=== PATIENT | male | born 1955 | race Two or more races ===

== ENCOUNTER 2020-07-02 16:09 | Inpatient (IN) | payer MEDICARE, OTHER ==
[~2020-07-02] VITALS: Ht 188 cm; Wt 83.5 kg
--- NOTE | 2020-07-02 16:09 | NUR ---
PT GABO 87 [facility] C/O FEVER OF 101.7 "HE IS HALF THRU HIS DIALYSIS" PT IS AAOX1, ON VENT VIA TRACH, HOOKED TO WAGON WINDER, KEPT RESTED AND COMFORTABLE. WILL CONTINUE TO MONITOR.
--- NOTE | 2020-07-02 16:34 | NUR ---
SEEN AND EXAMINED BY .
--- NOTE | 2020-07-02 16:40 | NUR ---
pt placed into vent support via trach size #8 shiley with cuff inflated. vent parameters below set per RT transporter: AC 12 VT 550 ML FIO2 40% PEEP +5 breath sounds clear bilateral. vent plugged into red outlet with alarms on and functioning. maliha @ bedside. Addendum: 07/02/20 at 1644 by SHANTELL KAUFFMAN RT Amended: Links added.
--- NOTE | 2020-07-02 16:45 | NUR ---
IV LINE ESTABLISHED BLOOD DRAWN AND SENT TO LAB.
--- NOTE | 2020-07-02 16:57 | NUR ---
REGISTERED NURSE SUPERVISOR AT BEDSIDE FOR XRAY.
[2020-07-02 17:03] LABS: BASOPHILS % (AUTO) 0.2 % (0.0-2.0); EOSINOPHILS % (AUTO) 0.5 % (0.0-6.0); HEMATOCRIT 35 % (39-51); HEMOGLOBIN 10.7 g/dL (13.5-17.5); LYMPHOCYTES # (AUTO) 0.3 /CMM (0.8-4.8); LYMPHOCYTES % (AUTO) 1.6 % (20.0-44.0); MEAN CORPUSCULAR HGB CONC 31 g/dl (31.0-36.0); MEAN CORPUSCULAR VOLUME 90 fL (80-96); MONOCYTES # (AUTO) 1.5 /CMM (0.1-1.30); NEUTROPHILS # (AUTO) 15.1 /CMM (1.8-8.9); NEUTROPHILS % (AUTO) 88.7 % (43.0-81.0); PLATELET COUNT (AUTO) 81 /CMM (150-450)
--- NOTE | 2020-07-02 17:05 | NUR ---
MOVE SHEET SUBMITTED AND CALLED FOR TELE BED.
--- NOTE | 2020-07-02 17:26 | NUR ---
LAB CALLED TRIPONIN [phone]
[2020-07-02 17:28] LABS: CALCIUM, SERUM 8.7 mg/dL (8.5-10.1); CREATININE 6.9 mg/dL (0.6-1.3); POTASSIUM 3.1 mmol/L (3.5-5.1)
--- NOTE | 2020-07-02 17:34 | NUR ---
CALLED CARDIO DR. AVILA SPEAKING WITH DR. MATHIAS.
[2020-07-02 17:39] LABS: ALBUMIN 2.3 g/dL (3.4-5.0); BILIRUBIN,DIRECT 0.7 mg/dL (0.0-0.2); TOTAL PROTEIN, SERUM 8.8 g/dL (6.4-8.2)
[2020-07-02] MEDS ORDERED: IV NS 0.9% 1,000 ML BAG IV ONE ×2 (18:00→20:00)
[2020-07-02] MEDS ORDERED: VANCOMYCIN 1 GM in IV D5W 250 ML IV ONE (18:00)
[2020-07-02] MEDS ORDERED: PIPERACILLIN /TAZOBACTAM 3.375 G in IV D5W 50 ML IV ONE (18:00)
--- NOTE | 2020-07-02 18:09 | NUR ---
[facility] CALLED DEPARTMENT HEAD COLLEGE OR UNIVERSITY PAGED.
[2020-07-02 18:42] LABS: BAND % (MANUAL) 4 % (0.0-5.0); LYMPHOCYTES % (MANUAL) 8 % (16-48); MONOCYTES % (MANUAL) 4 % (0-11.0); NEUTROPHILS % (MANUAL) 84 (42-76)
--- NOTE | 2020-07-02 18:46 | NUR ---
PT IS WHEELED TO CT SCAN VIA [facility].
[2020-07-02] MEDS ORDERED: ASPIRIN 325 MG TABLET ONE (19:00)
[2020-07-02] MEDS ORDERED: ASPIRIN 325 MG TABLET PEG ONE (19:00)
--- NOTE | 2020-07-02 19:16 | NUR ---
ER TALKING TO DR. BAXTER REGARDING PT ADMISSION.
[2020-07-02] MEDS ORDERED: ENOXAPARIN SODIUM 100 MG/ML DISP.SYRIN SQ SCH (19:30)
[2020-07-02] MEDS ORDERED: ENOXAPARIN SODIUM 100 MG/ML DISP.SYRIN SQ ONE (20:08)
[2020-07-02] MEDS ORDERED: NOREPINEPHRINE 8 MG in IV NS 0.9% 250 ML IV ONE (20:30)
[2020-07-02] MEDS ORDERED: ACETAMINOPHEN 650 MG/20.3 ML UDC NG ONE (20:30)
[2020-07-02] MEDS ORDERED: ACETAMINOPHEN 650 MG/20.3 ML UDC ONE (20:40)
--- NOTE | 2020-07-02 20:40 | NUR ---
LAB CALLED REGARDING NEGATIVE COVID RESULT.
--- NOTE | 2020-07-02 20:41 | NUR ---
SIMA Marquez at [facility] for mid line insertion.
[2020-07-02] MEDS ORDERED: ACETAMINOPHEN 650 MG/SUPP.RECT RC ONE (20:46)
[2020-07-02] MEDS ORDERED: NOREPINEPHRINE 4 MG/4 ML AMPUL IV ONE (21:16)
--- NOTE | 2020-07-02 21:58 | NUR ---
PATIENT CLEANED, PROVIDED WITH BED BATH. CHANGED INTO NEW GOWN, AND PROVIDED WITH NEW SHEETS.
[2020-07-02] MEDS ORDERED: ZOLPIDEM TARTRATE 5 MG TABLET PO PRN (22:00)
[2020-07-02] MEDS ORDERED: ONDANSETRON HCL/PF 4 MG/2 ML VIAL IVP PRN (22:00)
[2020-07-02] MEDS ORDERED: HYDROCODONE/APAP 5/325MG TABLET PO PRN (22:00)
[2020-07-02] MEDS ORDERED: MAGNESIUM HYDROXIDE 30 ML UDC PO PRN (22:00)
[2020-07-02] MEDS ORDERED: MAG HYDROX/AL HYDROX/SIMETH 30 ML UDC PO PRN (22:00)
--- NOTE | 2020-07-02 23:28 | NUR ---
REPORT GIVEN TO JUAN PABLO QUIGLEY FOR DEMETRICE.
[2020-07-03] VITALS (90 sets, daily range): BP systolic 84–143; BP diastolic 35–99
[2020-07-03] MEDS ORDERED: ZOSYN IVPB 2.25 G in IV D5W 50ml IV SCH ×2
[2020-07-03] MEDS: IV NS 0.9% 1,000 ML IV PRN ×3 (00:10→18:10)
[2020-07-03] MEDS ORDERED: PIPERACILLIN /TAZOBACTAM 2.25 G VIAL IV ONE (01:22)
--- NOTE | 2020-07-03 03:24 | NUR ---
MANAGER TECHNICAL SUPPORT.ADMISSION,. PT BEING ADMITTED FROM ER VIA GURNEY, SEPSIS, AND N STEMI. PT OPEN EYES. DOES NOT FOLLOW COMMANDS. ERP PROJECT MANAGER SHOWING S TACH. IV RT UPPER ARM PICC LINE. IVF NS 125 ML/H, LEVOPHED STARTED FROM ER. 0.1MCG/KG/MIN, MULTIPLE WOUND NOTED. WOUND CONSULTATION ORDERED. ELENA HAND MITTENS INITIATED. PT PULLING TUBES, HOB ELEVATED. WILL CONTINUE TO MONITOR VITALS.
[2020-07-03] MEDS ORDERED: NOREPINEPHRINE 8 MG in IV NS 0.9% 242 ML IV PRN (03:30)
[2020-07-03] MEDS ORDERED: NOREPINEPHRINE 8MG/250ML RTU 250 ML IV ONE (04:42)
[2020-07-03 05:22] LABS: BASOPHILS % (AUTO) 0.1 % (0.0-2.0); EOSINOPHILS % (AUTO) 0.5 % (0.0-6.0); HEMATOCRIT 35 % (39-51); HEMOGLOBIN 10.8 g/dL (13.5-17.5); LYMPHOCYTES # (AUTO) 0.3 /CMM (0.8-4.8); LYMPHOCYTES % (AUTO) 1.5 % (20.0-44.0); MEAN CORPUSCULAR HGB CONC 31 g/dl (31.0-36.0); MEAN CORPUSCULAR VOLUME 91 fL (80-96); MONOCYTES # (AUTO) 2.5 /CMM (0.1-1.30); MONOCYTES % (AUTO) 11.4 % (2.0-12.0); NEUTROPHILS # (AUTO) 18.6 /CMM (1.8-8.9); NEUTROPHILS % (AUTO) 86.5 % (43.0-81.0); PLATELET COUNT (AUTO) 85 /CMM (150-450); RED BLOOD CELL COUNT(AUTO) 3.83 MIL/uL (4.5-6.0); WHITE BLOOD COUNT (AUTO) 21.6 K/uL (4.3-11.0)
[2020-07-03 05:43] LABS: CALCIUM, SERUM 8.9 mg/dL (8.5-10.1); MAGNESIUM 2.6 mg/dL (1.8-2.4); PHOSPHORUS 3.7 mg/dL (2.5-4.9); POTASSIUM 3.2 mmol/L (3.5-5.1)
[2020-07-03 05:45] LABS: THYROID STIMULATING HORMONE 1.038 uIU/mL (0.358-3.74)
[2020-07-03 05:56] LABS: CREATININE 7.5 mg/dL (0.6-1.3)
--- NOTE | 2020-07-03 07:00 | NUR ---
RN NOTES RECEIVED PT ON BED, TRACH / VENT DEPENDENT, TOLERATING VENT SETTING WELL, NO DISTESS NOTED, FOLLOWS SIMPLE COMMAND, ON TELE ST ,HR IN 110'S , ON LEVO FOR BP SUPPORT, R UPPER ARM PICC LINE SITE CLEAN,DRY AND INTACT, SR UP x3, CALL LIGHT WITHIN EASY REACH, WILL CONTINUE TO MONITOR .
[2020-07-03] MEDS ORDERED: POTASSIUM CHLORIDE 20 MEQ POWDER PACKET NG SCH (08:00)
[2020-07-03] MEDS: HYDROCORTISONE SOD SUCCINATE 100 MG/2 ML VIAL IV SCH ×3 (08:42→20:52)
[2020-07-03] MEDS ORDERED: PANTOPRAZOLE 40 MG VIAL IV SCH (09:00)
[2020-07-03] MEDS ORDERED: QUET25TA GT (09:46)
[2020-07-03] MEDS ORDERED: ATOR10TA GT (09:46)
[2020-07-03] MEDS ORDERED: ONDA4TAB5 GT (09:46)
[2020-07-03] MEDS ORDERED: GLUC1KIT IM (09:46)
[2020-07-03] MEDS ORDERED: MIDO5TAB4 GT (09:46)
[2020-07-03] MEDS ORDERED: ALBU8.5H8 IH (09:46)
[2020-07-03] MEDS ORDERED: INSU100V28 SQ (09:46)
[2020-07-03] MEDS ORDERED: SCOP1PAT11 TD (09:46)
[2020-07-03] MEDS ORDERED: HYDR-4303 GT (09:46)
[2020-07-03] MEDS ORDERED: FERR300L GT (09:46)
[2020-07-03] MEDS ORDERED: PANT40SU2 GT (09:46)
[2020-07-03] MEDS ORDERED: EPOE1000 SQ (09:46)
[2020-07-03] MEDS ORDERED: LORA-259 GT (09:46)
[2020-07-03] MEDS ORDERED: DIPH1TAB GT (09:46)
[2020-07-03] MEDS ORDERED: ESCI10TA GT (09:46)
[2020-07-03] MEDS ORDERED: DILT30TA14 GT (09:46)
[2020-07-03] MEDS ORDERED: FOLI0.8T2 GT (09:46)
[2020-07-03] MEDS ORDERED: AMIN30LI2 GT (09:46)
[2020-07-03] MEDS ORDERED: ACET-868 GT (09:46)
[2020-07-03] MEDS ORDERED: NUT.237L67 GT (09:46)
[2020-07-03] MEDS ORDERED: GUAI100S11 GT (09:46)
[2020-07-03] MEDS: Z GUARD REMEDY 2 OZ OINT TP PRN (09:53)
[2020-07-03] MEDS: FLUDROCORTISONE 0.1 MG TABLET GT SCH ×3 (11:36→23:39)
[2020-07-03] MEDS: ZOSYN IVPB 2.25 G in IV D5W 50ml IV SCH ×3 (11:36→23:40)
[2020-07-03] MEDS ORDERED: DEXTROSE 50%-WATER 50 ML DISP.SYRIN IV PRN (14:00)
[2020-07-03] MEDS ORDERED: VANCOMYCIN 500 MG in IV D5W 100 ML IV ONE (14:00)
--- NOTE | 2020-07-03 14:00 | NUR ---
RN NOTES CONCRETE MIXING PLANT SUPERINTENDENT NOITFED REGARDING LOOSE STOOL x2 , NEW ORDER RECEIVED.
[2020-07-03] MEDS: NEPRO 1,000 ML BOTTLE GT PRN (15:12)
[2020-07-03] MEDS: INSULIN REGULAR, HUMAN 100 UNIT/ML 3 ML VIAL SQ PRN ×2 (17:28→23:39)
[2020-07-03] MEDS: BLOOD SUGAR DIAGNOSTIC 1 EACH STRIP IN SCH ×2 (17:29→23:36)
--- NOTE | 2020-07-03 18:54 | NUR ---
RN NOTES NO SIGNIFICANT CHANGES NOTED ON THIS SHIFT , WILL ENDORSE TO LOOPING MACHINE OPERATOR NURSE FOR CONTINUITY OF CARE.
--- NOTE | 2020-07-03 19:33 | NUR ---
RN NOTES PATIENT ON BED, AWAKE AND RESPONSIVE. FOLLOWS SIMPLE COMMANDS. [facility], TOLERATING SETTINGS WELL. NO SOB OR ANY DISTRESS. DENIES ANY PAIN. TELE MONITOR ON, HR 97. ON IVF FLUID @ 125ML/HR RUNNING. SR UP X3. BED LOCKED AND IN LOWEST POSITION. CALL LIGHT WITHIN REACH. WILL CONTINUE TO MONITOR.
[2020-07-03] MEDS ORDERED: ENOXAPARIN SODIUM 120 MG/0.8 ML DISP.SYRIN SQ SCH ×2 (20:00)
[2020-07-03] MEDS: FERROUS SULFATE UDC 300 MG/5 ML UDC GT SCH (20:52)
[2020-07-03] MEDS: DILTIAZEM HCL 30 MG TABLET GT SCH (20:52)
[2020-07-03] MEDS: MIDODRINE HCL (5MG) 5 MG TABLET GT SCH (20:52)
[2020-07-03] MEDS: ATORVASTATIN 10 MG TABLET GT SCH (21:05)
[2020-07-04] VITALS (76 sets, daily range): BP systolic 79–145; BP diastolic 44–79
[2020-07-04] MEDS: IV NS 0.9% 1,000 ML IV PRN (02:16)
[2020-07-04] MEDS: HYDROCORTISONE SOD SUCCINATE 100 MG/2 ML VIAL IV SCH ×2 (05:29→17:13)
[2020-07-04] MEDS: ZOSYN IVPB 2.25 G in IV D5W 50ml IV SCH (05:30)
[2020-07-04] MEDS: MIDODRINE HCL (5MG) 5 MG TABLET GT SCH ×3 (05:30→22:02)
[2020-07-04] MEDS: FLUDROCORTISONE 0.1 MG TABLET GT SCH (05:31)
[2020-07-04] MEDS ORDERED: VANCOMYCIN POST DIALYSIS 500MG IV PRN ×2 (06:00)
[2020-07-04] MEDS: BLOOD SUGAR DIAGNOSTIC 1 EACH STRIP IN SCH ×3 (06:31→18:37)
[2020-07-04] MEDS: INSULIN REGULAR, HUMAN 100 UNIT/ML 3 ML VIAL SQ PRN ×2 (06:32→17:58)
--- NOTE | 2020-07-04 07:37 | NUR ---
RN NOTES PATIENT ON BED, AWAKE AND RESPONSIVE. FOLLOWS SIMPLE COMMANDS. [facility], TOLERATING SETTINGS WELL. NO SOB OR ANY DISTRESS. DENIES ANY PAIN. TELE MONITOR ON, HR 90'S. ON IVF FLUID @ 125ML/HR RUNNING. SR UP X3. BED LOCKED AND IN LOWEST POSITION. CALL LIGHT WITHIN REACH. ENDORSED TO ONCOMING SHIFT.
[2020-07-04 08:10] LABS: BASOPHILS % (AUTO) 0.3 % (0.0-2.0); HEMATOCRIT 32 % (39-51); HEMOGLOBIN 10.1 g/dL (13.5-17.5); LYMPHOCYTES # (AUTO) 0.3 /CMM (0.8-4.8); LYMPHOCYTES % (AUTO) 2.2 % (20.0-44.0); MEAN CORPUSCULAR HGB CONC 31 g/dl (31.0-36.0); MEAN CORPUSCULAR VOLUME 90 fL (80-96); MONOCYTES # (AUTO) 1.3 /CMM (0.1-1.30); MONOCYTES % (AUTO) 10.2 % (2.0-12.0); NEUTROPHILS # (AUTO) 11.3 /CMM (1.8-8.9); NEUTROPHILS % (AUTO) 86.3 % (43.0-81.0); PLATELET COUNT (AUTO) 67 /CMM (150-450); RED BLOOD CELL COUNT(AUTO) 3.58 MIL/uL (4.5-6.0); WHITE BLOOD COUNT (AUTO) 13.1 K/uL (4.3-11.0)
[2020-07-04 08:36] LABS: POTASSIUM 3.9 mmol/L (3.5-5.1)
[2020-07-04 08:51] LABS: CREATININE 8.3 mg/dL (0.6-1.3)
--- NOTE | 2020-07-04 08:51 | NUR ---
WOUND CARE CONSULT: REVIEWED CHART, NURSING DOCUMENTATION AND PHOTOS WHICH INDICATE LOWER EXTREMITY WOUNDS, SCARRING TO SACRUM WITH INCONTINENCE ASSOCIATED SKIN DAMAGE OVER SCARRING AND TO PERINEUM, PRESENT ON ADMISSION. RECOMMEND DPM CONSULT. DR OSBORNE NOTIFIED OF CONSULT REQUEST. RECOMMENDATIONS MADE FOR SKN PROTECTION. DISCUSSED WITH NURSING STAFF. PT IS ON ROACH ISOFLEX LOW AIRLOSS BED. MD IN AGREEMENT WITH PLAN OF CARE.
[2020-07-04] MEDS ORDERED: PANTOPRAZOLE 40 MG/PACK PACK GT SCH (09:00)
[2020-07-04] MEDS: DILTIAZEM HCL 30 MG TABLET GT SCH ×2 (09:00→22:03)
[2020-07-04] MEDS: FERROUS SULFATE UDC 300 MG/5 ML UDC GT SCH ×2 (09:20→22:02)
[2020-07-04] MEDS: VIT B CMPLX 3/FA/VIT C/BIOTIN 1 TAB TABLET PO SCH (09:20)
[2020-07-04] MEDS: ESCITALOPRAM OXALATE (10 MG) 10 MG TABLET GT SCH (09:20)
--- NOTE | 2020-07-04 09:21 | NUR ---
SAND OPERATOR NOTES HELD CARDIZEM, ANTICIPATING HD.
[2020-07-04] MEDS: CLOTRIMAZOLE 1% 15 GM TUBE TP SCH ×2 (09:23→17:13)
--- NOTE | 2020-07-04 11:30 | NUR ---
HIP HOP PERFORMERS NOTES RECEIVED A CALL FROM LAB, PATIENT POSITIVE FOR C-DIFF, DR. ZUÑIGA AND INFECTION CONTROL NURSE MADE AWARE.
[2020-07-04] MEDS ORDERED: ALBUMIN 25% 25 GM in PREMIX 1 EA IV PRN (12:00)
--- NOTE | 2020-07-04 12:02 | NUR ---
LAWYER NOTES PATIENT CURRENTLY RECEIVING HD
[2020-07-04] MEDS ORDERED: ZOSYN IVPB 2.25 G in IV D5W 50ml IV SCH (13:00)
[2020-07-04] MEDS ORDERED: DEXTROSE 50%-WATER 50 ML DISP.SYRIN IV PRN (13:00)
--- NOTE | 2020-07-04 13:58 | NUR ---
BRAZING MACHINE OPERATOR NOTES S/P HD, 2L OUTPUT GLENIS WELL.
[2020-07-04] MEDS ORDERED: EPOETIN ALFA-EPBX 10,000 UNIT/ML VIAL IV ONE (15:00)
[2020-07-04] MEDS ORDERED: VANCOMYCIN 1 GM in IV D5W 250 ML IV ONE (15:00)
[2020-07-04] MEDS: LACTOBACILLUS RHAMNOSUS GG 1 EACH CAP.SPRINK PO SCH (17:13)
[2020-07-04] MEDS: VANCOMYCIN HCL 125 MG/2.5 ML ORAL.SUSP PO SCH (18:46)
--- NOTE | 2020-07-04 19:00 | NUR ---
EMPLOYMENT COUNSELOR NOTES PATIENT DOWNGRADED TO TELE, TRANSFERRED TO ROOM 101 VIA ACLS PROTOCOL, REPORT GIVEN TO DANN STATON. PATIENT ALERT AND ORIENTED X1. ABLE TO MOUTH WORDS. TRACH INTACT AND PATENT, SHILEY #8 GLENIS MECHANICAL VENTILATION WELL. RIGHT UPPER ARM PICC LINE INTACT WITH LEFT HAND HAND PERIPHERAL INTACT AND PATENT. LEFT UPPER CHEST HD CATH ACCESS SITE INTACT WITH DRESSING IN PLACE. BILATERAL WRIST RESTRAINTS IN PLACE WITH SKIN CIRCULATION CHECK DONE. REMAIN ON CONTACT PRECAUTIONS FOR C-DIFF. IN NO APPARENT DISTRESS.
--- NOTE | 2020-07-04 19:16 | NUR ---
RN NOTES PATIENT RECEIVED FROM RN AT THIS TIME PATIENT ON MECHANICAL VENT SATURATING WELL. WILL ENDORSE PLAN OF CARE TO UPCOMING RN.
--- NOTE | 2020-07-04 19:35 | NUR ---
RN OPENING NOTES RECEIVED PT IN BED. TRACH TO VENT. NONVERBAL ABLE TO OPEN EYES. PT HAS SHILEY 8 AC 12 TV 550 FIO2 30% AND PEEP 5. TOLERATING WELL. O2 SAT 100% NO SOB OR RESP DISTRESS. ON TELE MONITORING PT PRESENTS WITH NSR, HR 80S. IV SITE FLUSHED ASEPTICALLY. PT HAS GTUBE AUSCULTATED FLUSHED. PN NEPRO @6SCC TOLERATING WELL 0 RESIDUAL. SOFT ELENA WRIST RESTRAINTS ON SKIN CHECKED CIRCULATION CHECKED. SAFETY MEASURES IN PLACE. HOB ELEVATED SIDE RAILS UP X2 BED LOCKED IN LOWEST POSITION, CALL LIGHT WITHIN REACH. PT DENIES PAIN. WILL CONT TO MONITOR.
[2020-07-04] MEDS: ATORVASTATIN 10 MG TABLET GT SCH (22:02)
[2020-07-05] VITALS: BP 116/69
[2020-07-05] MEDS: BLOOD SUGAR DIAGNOSTIC 1 EACH STRIP IN SCH ×4 (00:07→17:33)
[2020-07-05] MEDS: INSULIN REGULAR, HUMAN 100 UNIT/ML 3 ML VIAL SQ PRN ×4 (00:44→17:36)
--- NOTE | 2020-07-05 01:02 | NUR ---
ORAL VANCO ORDERED IS NOT AVAILABLE, CHECK PREVIOUS FLOOR WELL AND NOTIFIED CHARGE AND NURSP SLURRY WORKER, MED NOT IN STOCK.
[2020-07-05 04:00] VITALS: BP 105/69
[2020-07-05] MEDS: MIDODRINE HCL (5MG) 5 MG TABLET GT SCH ×3 (05:05→20:54)
[2020-07-05] MEDS: VANCOMYCIN HCL 125 MG/2.5 ML ORAL.SUSP PO SCH ×4 (05:06→17:33)
[2020-07-05] MEDS: Z GUARD REMEDY 2 OZ OINT TP PRN (06:33)
[2020-07-05 06:51] LABS: BASOPHILS % (AUTO) 0.2 % (0.0-2.0); HEMATOCRIT 34 % (39-51); HEMOGLOBIN 10.7 g/dL (13.5-17.5); LYMPHOCYTES # (AUTO) 0.3 /CMM (0.8-4.8); LYMPHOCYTES % (AUTO) 2.7 % (20.0-44.0); MEAN CORPUSCULAR HGB CONC 32 g/dl (31.0-36.0); MEAN CORPUSCULAR VOLUME 90 fL (80-96); MONOCYTES # (AUTO) 1.7 /CMM (0.1-1.30); MONOCYTES % (AUTO) 13.5 % (2.0-12.0); NEUTROPHILS # (AUTO) 10.5 /CMM (1.8-8.9); NEUTROPHILS % (AUTO) 83.6 % (43.0-81.0); PLATELET COUNT (AUTO) 60 /CMM (150-450); RED BLOOD CELL COUNT(AUTO) 3.79 MIL/uL (4.5-6.0); WHITE BLOOD COUNT (AUTO) 12.6 K/uL (4.3-11.0)
--- NOTE | 2020-07-05 07:01 | NUR ---
RN CLOSING NOTES NO SIGNIFICANT CHANGES. BED BATH AND WOUND TX DONE ORDERED. PT TOLERATED BOTH. PT STILL ON SAME VENT SETTINGS ORDERED TOLERATING WELL. SAT 100%. PT HAD 1 LARGE BM. GTUBE FEEDING STILL ON AT THIS TIME. PT STILL REMAINS WITH RESTRAINTS. SOFT ELENA WRIST. SAFETY MEASURES IN PLACE. HOB ELEVATED. SIDE RAILS UP X3. BED LOCKED IN LOWEST POSITION. BED ALARM ON. WILL ENDORSE TO AM NURSE FOR CONTINUATION OF CARE.
[2020-07-05 07:17] LABS: CALCIUM, SERUM 8.8 mg/dL (8.5-10.1); MAGNESIUM 2.5 mg/dL (1.8-2.4); PHOSPHORUS 3.8 mg/dL (2.5-4.9); POTASSIUM 3.4 mmol/L (3.5-5.1)
[2020-07-05 07:27] LABS: CREATININE 7.5 mg/dL (0.6-1.3)
--- NOTE | 2020-07-05 07:30 | NUR ---
TD OPENING NOTES RECEIVED PT IN BED. TRACH TO VENT. NONVERBAL ABLE TO OPEN EYES. PT HAS SHILEY 8 AC 12 TV 550 FIO2 30% AND PEEP 5. TOLERATING WELL. O2 SAT 100% NO SOB OR RESP DISTRESS. ON TELE MONITORING PT PRESENTS WITH NSR, HR 80S. IV SITE FLUSHED ASEPTICALLY. PT HAS GTUBE AUSCULTATED FLUSHED. ON NEPRO @6SCC TOLERATING WELL 0 RESIDUAL. SOFT ELENA WRIST RESTRAINTS ON SKIN CHECKED CIRCULATION CHECKED. SAFETY MEASURES IN PLACE. HOB ELEVATED SIDE RAILS UP X2 BED LOCKED IN LOWEST POSITION, CALL LIGHT WITHIN REACH. PT DENIES PAIN. WILL CONTINUE TO MONITOR AND PROVIDE CARE
--- NOTE | 2020-07-05 07:36 | NUR ---
WOUND CARE CONSULT: PT SEEN FOR SACRAL WOUND WHICH HAS MULTIPLE OPEN AREAS WELL INCONTINENCE ASSOCIATED SKIN DAMAGE TO BUTTOCKS AND PERIWOUND SCARRING, PRESENT ON ADMISSION. RECOMMEND SURGICAL CONSULT. DR WERNER NOTIFIED. RECOMMENDATIONS FOR SKIN PROTECTION DISCUSSED WITH NURSING STAFF. PT NOTED TO BE HAVING LOOSE STOOLS. IN AGREEMENT WITH PLAN OF CARE. [facility]OW [facility] BED. Addendum: 07/05/20 at 0738 by FRITZ BALL WNDNU Amended: Links added.
[2020-07-05 08:00] VITALS: BP 119/71
[2020-07-05] MEDS ORDERED: HYDROGEL DRESSING 90 GM TUBE TP PRN (08:00)
[2020-07-05] MEDS: FERROUS SULFATE UDC 300 MG/5 ML UDC GT SCH ×2 (09:06→20:54)
[2020-07-05] MEDS: DILTIAZEM HCL 30 MG TABLET GT SCH ×2 (09:06→21:00)
[2020-07-05] MEDS: FAMOTIDINE (20 MG) 20 MG TABLET GT SCH (09:07)
[2020-07-05] MEDS: ESCITALOPRAM OXALATE (10 MG) 10 MG TABLET GT SCH (09:07)
[2020-07-05] MEDS: LACTOBACILLUS RHAMNOSUS GG 1 EACH CAP.SPRINK PO SCH ×2 (09:07→17:33)
[2020-07-05] MEDS: HYDROCORTISONE SOD SUCCINATE 100 MG/2 ML VIAL IV SCH (09:07)
[2020-07-05] MEDS: VIT B CMPLX 3/FA/VIT C/BIOTIN 1 TAB TABLET PO SCH (09:07)
--- NOTE | 2020-07-05 11:11 | NUR ---
SPOKE TO PATIENT'S SISTER, KWADWO SAO TOMEAN. GAVE UPDATE ON PATIENT AND RECEIVED CONSENT FOR PERMACATH REMOVAL, ORDERED BY DR. DIAL.
--- NOTE | 2020-07-05 11:11 | NUR ---
SON - KARINA PHONE NUMBER [phone] PATIENT'S SISTER, JUAN PABLO MENJIVAR REQUESTED THAT THE PATIENT'S SON BE CONTACTED FIRST FOR ANY CONSENTS BUT SHE WILL PROVIDE CONSENT IF SON IS NOT REACHABLE.
[2020-07-05] MEDS: HYDROGEL DRESSING 90 GM TUBE TP SCH (11:38)
[2020-07-05] MEDS: CLOTRIMAZOLE 1% 15 GM TUBE TP SCH ×2 (11:39→17:33)
[2020-07-05 12:00] VITALS: BP 122/87
--- NOTE | 2020-07-05 14:24 | NUR ---
FLEXISEAL RECTAL TUBE INSERTED ORDERED.
[2020-07-05] MEDS ORDERED: VANCOMYCIN 1 GM in IV D5W 250 ML IV ONE (15:00)
--- NOTE | 2020-07-05 15:11 | NUR ---
TESSIE DIAL AT BEDSIDE. REMOVED PERMA CATH. NO S/S OF EXCESSIVE BLEEDING AT THIS TIME. WILL CONT TO MONITOR PATIENT.
--- NOTE | 2020-07-05 15:54 | NUR ---
SPOKE TO [facility] TO DETERMINE VACCINATION STATUS. NURSE INFORMED THAT PATIENT RECEIVED FLU & PNEUMONIA VACCINES ON 06/24/2020. INTERVENTION DOCUMENT COMPLETED TO REFLECT.
[2020-07-05 16:00] VITALS: BP 116/71
--- NOTE | 2020-07-05 18:39 | NUR ---
TELEMETRY CLOSING NOTES RECEIVED PT IN BED. TRACH TO VENT. NONVERBAL ABLE TO OPEN EYES. PT HAS SHILEY 8 AC 12 TV 550 FIO2 30% AND PEEP 5. TOLERATING WELL. O2 SAT 100% NO SOB OR RESP DISTRESS. ON TELE MONITORING PT PRESENTS WITH NSR, HR 80S. IV SITE FLUSHED ASEPTICALLY. PT HAS GTUBE AUSCULTATED FLUSHED. ON NEPRO @6SCC TOLERATING WELL 0 RESIDUAL, CURRENTLY STOPPED ORDERED. SOFT ELENA WRIST RESTRAINTS ON SKIN CHECKED CIRCULATION CHECKED. SAFETY MEASURES IN PLACE. HOB ELEVATED SIDE RAILS UP X2 BED LOCKED IN LOWEST POSITION, CALL LIGHT WITHIN REACH. PT DENIES PAIN. WILL ENDORSE TO TROUBLE LINEMAN NURSE FOR DEMETRICE.
--- NOTE | 2020-07-05 19:25 | NUR ---
RECEIVED PT ON BED AWAKE A/O X2 CAN MOUTH WORDS ON TRACHE/VENT SETTING PER MD FIO2 30% SPO2 98% TELE MONITOR READS SINUS RHYTHM 80'S HAVE GTUBE IN PLACE, PLACEMENT VERIFIED, RESIDUAL CHECKED 10ML WITH ONGOING NEPRO @ 65ML/HR TOLERATING WELL, HAVE MIKI TLC AND LEFT HAND # 20 PATENT AND FLUSHED, HAVE FLEXISEAL ON PLACE NO BOWEL MOVEMENT NOTED, HAVE BILATEARL WRIST RESTRAINTS CIRCULATION WAS CHECKED , BED ON LOWEST POSITION AND LOCKED SIDE RAILS UP X2 CALL LIGHT WITHIN REACH WILL CONT TO MONITOR
[2020-07-05 20:00] VITALS: BP 108/60
--- NOTE | 2020-07-05 21:00 | NUR ---
CARDIZEM NOT GIVEN BP OF PT IS 108/60 HR 82 AND MIDODRINE IS ALSO TO BE GIVEN AT SAME TIME
[2020-07-05] MEDS: ATORVASTATIN 10 MG TABLET GT SCH (22:26)
[2020-07-06] VITALS: BP 126/66
[2020-07-06] MEDS: VANCOMYCIN HCL 125 MG/2.5 ML ORAL.SUSP PO SCH ×4 (00:10→18:47)
[2020-07-06] MEDS: INSULIN REGULAR, HUMAN 100 UNIT/ML 3 ML VIAL SQ PRN ×4 (00:17→19:09)
[2020-07-06] MEDS: BLOOD SUGAR DIAGNOSTIC 1 EACH STRIP IN SCH ×5 (00:18→23:45)
--- NOTE | 2020-07-06 04:15 | NUR ---
TRANSFER PT TO ROOM 312-1 VIA ACLS PROTOCOL, D/T COVID TEST IS NEGATIVE, STILL ON TRACH/VENT SETTING PER MD SPO2 98% REPORT WAS GIVEN TO CHRISTEL QUIGLEY FOR DEMETRICE BELONGINGS ASLO ENDORSED AT BEDSIDE
--- NOTE | 2020-07-06 04:37 | NUR ---
ENDING NOTES: RECEIVEDD THE PT VIA BED FROM [facility] WILL OPEN EYES AND THERE IS EYE CONTACT HE DOES MOUTH WORDS. TRACH AREA CLEAN WITH DRESSING FLEXICELL NOTED PICLINE RIGHT UPPER ARM GT FEEDING PLACED ON MACHINE AND STARTED ASP PRECAUTIONS. TELE MONITOR PLACED
[2020-07-06 05:01] VITALS: BP 102/65
[2020-07-06] MEDS: MIDODRINE HCL (5MG) 5 MG TABLET GT SCH ×3 (05:09→22:15)
--- NOTE | 2020-07-06 07:20 | NUR ---
ms rn received a nonverbal patient, vent dependent, gtube intact w/ on going feeding,tolerated well, w/o residual,rectal tube intact w/ dark brown poutput,repositioned for comfort,all needs attended.
[2020-07-06 07:27] LABS: BASOPHILS % (AUTO) 0.2 % (0.0-2.0); HEMATOCRIT 35 % (39-51); LYMPHOCYTES # (AUTO) 0.6 /CMM (0.8-4.8); LYMPHOCYTES % (AUTO) 5.2 % (20.0-44.0); MEAN CORPUSCULAR HGB CONC 31 g/dl (31.0-36.0); MEAN CORPUSCULAR VOLUME 89 fL (80-96); MONOCYTES # (AUTO) 1.8 /CMM (0.1-1.30); MONOCYTES % (AUTO) 15.7 % (2.0-12.0); NEUTROPHILS # (AUTO) 8.9 /CMM (1.8-8.9); NEUTROPHILS % (AUTO) 78.9 % (43.0-81.0); PLATELET COUNT (AUTO) 53 /CMM (150-450); RED BLOOD CELL COUNT(AUTO) 3.97 MIL/uL (4.5-6.0); WHITE BLOOD COUNT (AUTO) 11.3 K/uL (4.3-11.0)
[2020-07-06 07:45] LABS: CALCIUM, SERUM 8.3 mg/dL (8.5-10.1); MAGNESIUM 2.5 mg/dL (1.8-2.4); PHOSPHORUS 3.9 mg/dL (2.5-4.9); POTASSIUM 3.3 mmol/L (3.5-5.1)
[2020-07-06 07:47] LABS: CREATININE 7.7 mg/dL (0.6-1.3)
[2020-07-06 08:00] VITALS: BP 117/68
[2020-07-06] MEDS: CLOTRIMAZOLE 1% 15 GM TUBE TP SCH ×2 (09:00→18:50)
--- NOTE | 2020-07-06 09:40 | NUR ---
ms rn medications given, via gtube,tolerated well.
[2020-07-06] MEDS: FERROUS SULFATE UDC 300 MG/5 ML UDC GT SCH ×2 (09:44→22:15)
[2020-07-06] MEDS: LACTOBACILLUS RHAMNOSUS GG 1 EACH CAP.SPRINK PO SCH ×2 (09:44→18:47)
[2020-07-06] MEDS: VIT B CMPLX 3/FA/VIT C/BIOTIN 1 TAB TABLET PO SCH (09:46)
[2020-07-06] MEDS: ESCITALOPRAM OXALATE (10 MG) 10 MG TABLET GT SCH (09:46)
[2020-07-06] MEDS: FAMOTIDINE (20 MG) 20 MG TABLET GT SCH (09:46)
[2020-07-06] MEDS: DILTIAZEM HCL 30 MG TABLET GT SCH ×2 (09:47→22:14)
[2020-07-06 11:01] LABS: LYMPHOCYTES % (MANUAL) 3 % (16-48); MONOCYTES % (MANUAL) 11 % (0-11.0); NEUTROPHILS % (MANUAL) 86 (42-76)
[2020-07-06 12:00] VITALS: BP 123/70
[2020-07-06 16:00] VITALS: BP 145/76
[2020-07-06] MEDS: HYDROGEL DRESSING 90 GM TUBE TP SCH (18:49)
--- NOTE | 2020-07-06 19:00 | NUR ---
ms rn on bed, all needs attended.
[2020-07-06 20:00] VITALS: BP 139/75
[2020-07-06] MEDS: ATORVASTATIN 10 MG TABLET GT SCH (22:14)
[2020-07-07] VITALS: BP 137/71
[2020-07-07] MEDS: VANCOMYCIN HCL 125 MG/2.5 ML ORAL.SUSP PO SCH ×4 (00:03→17:49)
[2020-07-07] MEDS: BLOOD SUGAR DIAGNOSTIC 1 EACH STRIP IN SCH ×4 (00:03→17:03)
[2020-07-07] MEDS: INSULIN REGULAR, HUMAN 100 UNIT/ML 3 ML VIAL SQ PRN ×3 (00:06→12:40)
[2020-07-07 04:00] VITALS: BP 127/84
[2020-07-07] MEDS: MIDODRINE HCL (5MG) 5 MG TABLET GT SCH ×3 (05:04→22:03)
--- NOTE | 2020-07-07 07:02 | NUR ---
END OF SHIFT SUMMARY PATIENT IN BED. OPENS EYES, ABLE TO MOUTH WORDS BUT UNCLEAR. TRACH SHILEY #8 WITH VENT SETTINGS AC 12 TV 550 FiO2 30% PEEP 5. TELE READING SR WITH PAC PVC 86. IV ACCESS ON MIKI PICC LINE AND L HAND #20 G, INTACT, PATENT, FLUSHING WELL. FLEXISEAL IS INTACT WITH DARK BROWN OUTPUT. GTF NEPRO @ 65 ML/HR, NO RESIDUAL, TOLERATING WELL. BILATERAL SOFT RESTRAINT, CHECKED, HAS GOOD CIRCULATION. ALL NEEDS HAVE BEEN MET. ROUTINE MEDS WERE GIVEN ORDERED. SAFETY MEASURES MAINTAINED. BED IN LOWEST POSITION, BRAKES LOCKED. SIDE RAILS UP X2. CALL LIGHT WITHIN REACH. WILL ENDORSE TO MAP MAKER FOR CONTINUITY OF CARE.
[2020-07-07 07:06] LABS: BASOPHILS % (AUTO) 0.2 % (0.0-2.0); EOSINOPHILS % (AUTO) 0.1 % (0.0-6.0); HEMATOCRIT 38 % (39-51); HEMOGLOBIN 12.1 g/dL (13.5-17.5); LYMPHOCYTES # (AUTO) 0.9 /CMM (0.8-4.8); LYMPHOCYTES % (AUTO) 6.4 % (20.0-44.0); MEAN CORPUSCULAR HGB CONC 32 g/dl (31.0-36.0); MEAN CORPUSCULAR VOLUME 87 fL (80-96); MONOCYTES # (AUTO) 2.1 /CMM (0.1-1.30); MONOCYTES % (AUTO) 15.7 % (2.0-12.0); NEUTROPHILS # (AUTO) 10.4 /CMM (1.8-8.9); NEUTROPHILS % (AUTO) 77.6 % (43.0-81.0); PLATELET COUNT (AUTO) 68 /CMM (150-450); RED BLOOD CELL COUNT(AUTO) 4.39 MIL/uL (4.5-6.0); WHITE BLOOD COUNT (AUTO) 13.4 K/uL (4.3-11.0)
[2020-07-07 07:21] LABS: ALBUMIN 1.7 g/dL (3.4-5.0); BILIRUBIN,TOTAL 1.1 mg/dL (0.2-1.0); CALCIUM, SERUM 8.6 mg/dL (8.5-10.1); MAGNESIUM 2.5 mg/dL (1.8-2.4); PHOSPHORUS 3.8 mg/dL (2.5-4.9); POTASSIUM 3.4 mmol/L (3.5-5.1); TOTAL PROTEIN, SERUM 7.3 g/dL (6.4-8.2)
[2020-07-07 07:25] LABS: CREATININE 8.6 mg/dL (0.6-1.3)
[2020-07-07 08:00] VITALS: BP 116/72
--- NOTE | 2020-07-07 08:03 | NUR ---
TERRAZZO POLISHER HELPER OPENING NOTES RECEIVED PATIENT IN BED. OPENS EYES, ABLE TO MOUTH WORDS BUT UNCLEAR. TRACH SHILEY #8 WITH VENT SETTINGS AC 12 TV 550 FiO2 30% PEEP 5. TELE READING SR WITH PAC PVC AND PACs 80s. IV ACCESS ON MIKI PICC LINE AND L HAND #20 G, INTACT, PATENT, FLUSHING WELL. FLEXI-SEAL IS INTACT WITH DARK BROWN OUTPUT. G-TUBE IN PLACE; NEPRO @ 65 ML/HR, NO RESIDUAL, TOLERATING WELL. BILATERAL SOFT RESTRAINT PRESENT. SAFETY PRECAUTIONS IN PLACE; BED IN LOW POSITION AND LOCKED, RAILS UP X2, CALL LIGHT WITHIN REACH. WILL CONTINUE TO MONITOR PATIENT.
[2020-07-07] MEDS: FERROUS SULFATE UDC 300 MG/5 ML UDC GT SCH ×2 (08:10→22:02)
[2020-07-07] MEDS: LACTOBACILLUS RHAMNOSUS GG 1 EACH CAP.SPRINK PO SCH ×2 (08:10→17:49)
[2020-07-07] MEDS: VIT B CMPLX 3/FA/VIT C/BIOTIN 1 TAB TABLET PO SCH (08:10)
[2020-07-07] MEDS: DILTIAZEM HCL 30 MG TABLET GT SCH ×2 (08:11→22:02)
[2020-07-07] MEDS: ESCITALOPRAM OXALATE (10 MG) 10 MG TABLET GT SCH (08:11)
[2020-07-07] MEDS: ASPIRIN 81 MG TAB.CHEW GT SCH (08:11)
[2020-07-07] MEDS: FAMOTIDINE (20 MG) 20 MG TABLET GT SCH (08:11)
[2020-07-07] MEDS: HYDROGEL DRESSING 90 GM TUBE TP SCH (08:12)
[2020-07-07] MEDS: CLOTRIMAZOLE 1% 15 GM TUBE TP SCH ×2 (08:12→16:30)
[2020-07-07 09:18] LABS: BAND % (MANUAL) 1 % (0.0-5.0); LYMPHOCYTES % (MANUAL) 9 % (16-48); MONOCYTES % (MANUAL) 17 % (0-11.0); NEUTROPHILS % (MANUAL) 73 (42-76)
--- NOTE | 2020-07-07 15:13 | NUR ---
COMMUNITY LIVING SPECIALIST NOTES CALLED SISTER KWADWO AND GOT CONSENT FOR PERMA-CATH PLACEMENT TODAY. CONSENT SIGNED BY 2 RNs. PATIENT UNABLE TO SIGN.
[2020-07-07 16:00] VITALS: BP 125/67
--- NOTE | 2020-07-07 18:47 | NUR ---
TRUCK SALES REPRESENTATIVE CLOSING NOTES PATIENT REMAINS IN BED. OPENS EYES, ABLE TO MOUTH WORDS. TRACH SHILEY #8 WITH VENT SETTINGS AC 12 TV 550 FiO2 30% PEEP 5. TELE READING SR WITH PAC PVC AND PACs 80s. IV ACCESS ON MIKI PICC LINE AND L HAND #20 G, INTACT, PATENT, FLUSHING WELL. G-TUBE IN PLACE; NEPRO @ 65 ML/HR RE-STARTED JUST NOW. BILATERAL SOFT RESTRAINT PRESENT. PATIENT CLEAN AND DRY. SAFETY PRECAUTIONS IN PLACE; BED IN LOW POSITION AND LOCKED, RAILS UP X2, CALL LIGHT WITHIN REACH. WILL ENDORSE TO BUTANE COMPRESSOR OPERATOR NURSE.
--- NOTE | 2020-07-07 20:00 | NUR ---
RN NOTES RECEIVED PT. AWAKE, NON -VERBAL VENT DEPENDENT, SR WITH PAC AND PVS'S ON TELE MONITOR, ON BILATERAL SOFT WRIST RESTRAINTS, CIRCULATION ON BILATERAL ARMS ARE GOOD, FLEXI-SEAL IN PLACE, PT. IS TOLERATING HIS G-TUBE FEEDING FAIRLY, NOT IN DISTRESS, NO PAIN NOTED, WILL CONTINUE TO MONITOR
--- NOTE | 2020-07-07 20:33 | NUR ---
RT NOTE RECEIVED PT ON CURRENT VENT SETTINGS AC 12 TV 550 FiO2 30% PEEP 5 WITH TRACH SHILEY #8. ABLE TO MOUTH WORD. ASKING FOR SOMETHING TO EAT. NOTIFIED RN PATRICA. AMBUBAG BY BEDSIDE. SPO2 92-96% ON CURRENT SETTINGS. PLUG INTO RED OUTLET AND ALARMS ON AND AUDIABLE WILL CONTINUE TO MONITOR T/O SHIFT
[2020-07-07 20:41] VITALS: BP 121/71
[2020-07-07] MEDS: ATORVASTATIN 10 MG TABLET GT SCH (22:02)
--- NOTE | 2020-07-07 22:30 | NUR ---
RN NOTES STACEY (PICC LINER) CAME AND INSERTED PERMA CATH ON THE RIGHT IJ, PT TOLERATED FAIRLY
[2020-07-07 23:58] VITALS: BP 139/56
[2020-07-08] MEDS: BLOOD SUGAR DIAGNOSTIC 1 EACH STRIP IN SCH ×4 (00:19→16:53)
[2020-07-08] MEDS: VANCOMYCIN HCL 125 MG/2.5 ML ORAL.SUSP PO SCH ×2 (00:19→05:16)
[2020-07-08] MEDS: NEPRO 1,000 ML BOTTLE GT PRN (00:29)
[2020-07-08] MEDS: INSULIN REGULAR, HUMAN 100 UNIT/ML 3 ML VIAL SQ PRN ×4 (00:30→17:17)
[2020-07-08 04:15] VITALS: BP 130/59
[2020-07-08] MEDS: MIDODRINE HCL (5MG) 5 MG TABLET GT SCH ×3 (05:16→22:30)
--- NOTE | 2020-07-08 06:49 | NUR ---
RN NOTES PT, NOT IN DISTRESS, NO PAIN NOTED, MORNING CARE RENDERED, PT. NEEDS ATTENDED
[2020-07-08 07:02] LABS: HEMATOCRIT 36 % (39-51); HEMOGLOBIN 11.3 g/dL (13.5-17.5); MEAN CORPUSCULAR VOLUME 87 fL (80-96); RED BLOOD CELL COUNT(AUTO) 4.07 MIL/uL (4.5-6.0); WHITE BLOOD COUNT (AUTO) 18.2 K/uL (4.3-11.0)
[2020-07-08 07:03] LABS: BASOPHILS # (AUTO) 0.1 /CMM (0.0-0.2); BASOPHILS % (AUTO) 0.8 % (0.0-2.0); EOSINOPHILS % (AUTO) 0.2 % (0.0-6.0); LYMPHOCYTES # (AUTO) 0.5 /CMM (0.8-4.8); LYMPHOCYTES % (AUTO) 2.8 % (20.0-44.0); MEAN CORPUSCULAR HGB CONC 32 g/dl (31.0-36.0); MONOCYTES # (AUTO) 1.7 /CMM (0.1-1.30); MONOCYTES % (AUTO) 9.1 % (2.0-12.0); NEUTROPHILS # (AUTO) 15.8 /CMM (1.8-8.9); NEUTROPHILS % (AUTO) 87.1 % (43.0-81.0); PLATELET COUNT (AUTO) 78 /CMM (150-450)
[2020-07-08 07:18] LABS: ALBUMIN 1.7 g/dL (3.4-5.0); BILIRUBIN,TOTAL 1.6 mg/dL (0.2-1.0); CALCIUM, SERUM 8.6 mg/dL (8.5-10.1); MAGNESIUM 2.4 mg/dL (1.8-2.4); PHOSPHORUS 5.2 mg/dL (2.5-4.9); POTASSIUM 3.5 mmol/L (3.5-5.1)
[2020-07-08 07:19] LABS: CREATININE 9.6 mg/dL (0.6-1.3)
[2020-07-08 08:00] VITALS: BP 122/65
[2020-07-08] MEDS: CLOTRIMAZOLE 1% 15 GM TUBE TP SCH ×2 (09:00→17:13)
[2020-07-08] MEDS: HYDROGEL DRESSING 90 GM TUBE TP SCH (09:00)
[2020-07-08] MEDS: DILTIAZEM HCL 30 MG TABLET GT SCH ×2 (09:00→22:25)
[2020-07-08 09:23] LABS: BAND % (MANUAL) 1 % (0.0-5.0); LYMPHOCYTES % (MANUAL) 3 % (16-48); MONOCYTES % (MANUAL) 5 % (0-11.0); NEUTROPHILS % (MANUAL) 91 (42-76)
[2020-07-08] MEDS: FAMOTIDINE (20 MG) 20 MG TABLET GT SCH (10:28)
[2020-07-08] MEDS: ESCITALOPRAM OXALATE (10 MG) 10 MG TABLET GT SCH (10:28)
[2020-07-08] MEDS: LACTOBACILLUS RHAMNOSUS GG 1 EACH CAP.SPRINK PO SCH ×2 (10:28→16:53)
[2020-07-08] MEDS: FERROUS SULFATE UDC 300 MG/5 ML UDC GT SCH ×2 (10:28→22:29)
[2020-07-08] MEDS: VIT B CMPLX 3/FA/VIT C/BIOTIN 1 TAB TABLET PO SCH (10:28)
[2020-07-08] MEDS: ASPIRIN 81 MG TAB.CHEW GT SCH (10:29)
[2020-07-08 12:00] VITALS: BP 101/50
[2020-07-08] MEDS: CEFTRIAXONE 2 G in IV D5W 100 ML IV SCH ×2 (13:54→14:09)
[2020-07-08 16:00] VITALS: BP 100/69
--- NOTE | 2020-07-08 18:45 | NUR ---
IT HELP DESK MANAGER CLOSING NOTES PATIENT REMAINS IN BED. OPENS EYES, ABLE TO MOUTH WORDS. TRACH SHILEY #8 WITH VENT SETTINGS AC 12 TV 550 FiO2 30% PEEP 5. TELE READING ST WITH PVC. IV ACCESS ON MIKI PICC LINE AND L HAND #20 G, INTACT, PATENT, FLUSHING WELL. FLEXISEAL FLUSHED, BAG CHANGED. G-TUBE IN PLACE; NEPRO @ 65 ML/HR RE-STARTED JUST NOW. BILATERAL SOFT RESTRAINT PRESENT. PATIENT CLEAN AND DRY. SAFETY PRECAUTIONS IN PLACE; BED IN LOW POSITION AND LOCKED, RAILS UP X2, CALL LIGHT WITHIN REACH. WILL ENDORSE TO CLINICAL NUTRITIONIST NURSE.
[2020-07-08 20:00] VITALS: BP 144/78
[2020-07-08] MEDS: ACETAMINOPHEN 325 MG TABLET PO PRN (22:30)
[2020-07-08] MEDS: ATORVASTATIN 10 MG TABLET GT SCH (22:30)
[2020-07-09] VITALS: BP 124/77
[2020-07-09] MEDS: BLOOD SUGAR DIAGNOSTIC 1 EACH STRIP IN SCH ×4 (00:10→17:55)
[2020-07-09] MEDS: NEPRO 1,000 ML BOTTLE GT PRN ×2 (00:11→17:57)
[2020-07-09] MEDS: INSULIN REGULAR, HUMAN 100 UNIT/ML 3 ML VIAL SQ PRN ×3 (00:13→19:09)
[2020-07-09 04:00] VITALS: BP 119/66
--- NOTE | 2020-07-09 04:15 | NUR ---
patient having some labored berathing pt suctioned frothy red secretions removed. spo2 noted to be 89%. RT called, Brock rt came and evaluated patient. some trach care performed, fi02 rased to 50% pt now saturating at 95% breathing is more nonlabored. will cont to monitor.
[2020-07-09] MEDS: MIDODRINE HCL (5MG) 5 MG TABLET GT SCH ×3 (06:23→21:02)
[2020-07-09 06:38] LABS: BASOPHILS % (AUTO) 0.2 % (0.0-2.0); EOSINOPHILS % (AUTO) 0.1 % (0.0-6.0); HEMATOCRIT 33 % (39-51); HEMOGLOBIN 10.5 g/dL (13.5-17.5); LYMPHOCYTES # (AUTO) 0.5 /CMM (0.8-4.8); LYMPHOCYTES % (AUTO) 2.9 % (20.0-44.0); MEAN CORPUSCULAR HGB CONC 32 g/dl (31.0-36.0); MEAN CORPUSCULAR VOLUME 87 fL (80-96); MONOCYTES # (AUTO) 1.4 /CMM (0.1-1.30); MONOCYTES % (AUTO) 8.8 % (2.0-12.0); NEUTROPHILS # (AUTO) 14.4 /CMM (1.8-8.9); PLATELET COUNT (AUTO) 82 /CMM (150-450); RED BLOOD CELL COUNT(AUTO) 3.74 MIL/uL (4.5-6.0); WHITE BLOOD COUNT (AUTO) 16.4 K/uL (4.3-11.0)
[2020-07-09 07:09] LABS: CALCIUM, SERUM 8.7 mg/dL (8.5-10.1); MAGNESIUM 2.8 mg/dL (1.8-2.4); PHOSPHORUS 5.8 mg/dL (2.5-4.9); POTASSIUM 3.6 mmol/L (3.5-5.1)
[2020-07-09 07:30] LABS: CREATININE 8.4 mg/dL (0.6-1.3)
--- NOTE | 2020-07-09 07:32 | NUR ---
CLOSING RN NOTE PT HAD 300 ML OUT OF FEXISEAL RECTAL TUBE. EXRETING MUCH GAS. PT OXYGEN DESATTED DURING SHIFT FIO2 INCREASED TO 50%. PT IN STABLE CONDITION
--- NOTE | 2020-07-09 07:40 | NUR ---
ms rn received on bed, awake, vent dependent patient, w/ g tube on, tolerating well w/o residual, flexi seal intact w/ brownish color output.all needs attended.
[2020-07-09 08:00] VITALS: BP 152/90
[2020-07-09] MEDS: DILTIAZEM HCL 30 MG TABLET GT SCH ×2 (09:00→21:02)
--- NOTE | 2020-07-09 09:00 | NUR ---
ms rn held am meds,pt will have hd today.
[2020-07-09 09:17] LABS: ABG BASE EXCESS -6.1 mmol/L; ABG OXYGEN SATURATION 93.1 % (92.0-98.5); ABG PH 7.356 (7.350-7.450); AaDO2 242.3 mmHg; COHb 1.6 % (0.5-1.5); MetHb 0.1 % (0.0-1.5); O2Hb 91.5 % (94.0-97.0); SITE, ABG Left Radial
--- NOTE | 2020-07-09 10:00 | NUR ---
ms rn patient has sob, rt notified, fio2 increased to 80%, 94% saturation,abg done w/ result,md aware.
--- NOTE | 2020-07-09 11:00 | NUR ---
ms raghu patient started hd will monitor patient.
--- NOTE | 2020-07-09 13:00 | NUR ---
ms rn patient's [id number] held coverage due to patient's feeding is off from [phone] [id number]
--- NOTE | 2020-07-09 13:30 | NUR ---
ms raghu hd done w/ no output noted, only cleaning done.
[2020-07-09] MEDS: VIT B CMPLX 3/FA/VIT C/BIOTIN 1 TAB TABLET PO SCH (13:35)
[2020-07-09] MEDS: FERROUS SULFATE UDC 300 MG/5 ML UDC GT SCH ×2 (13:35→21:01)
[2020-07-09] MEDS: FAMOTIDINE (20 MG) 20 MG TABLET GT SCH (13:35)
[2020-07-09] MEDS: ASPIRIN 81 MG TAB.CHEW GT SCH (13:35)
[2020-07-09] MEDS: ESCITALOPRAM OXALATE (10 MG) 10 MG TABLET GT SCH (13:36)
[2020-07-09] MEDS: LACTOBACILLUS RHAMNOSUS GG 1 EACH CAP.SPRINK PO SCH ×2 (13:36→17:55)
[2020-07-09 13:48] VITALS: BP 94/48
--- NOTE | 2020-07-09 14:00 | NUR ---
ms raghu due meds given via g tube,.
[2020-07-09] MEDS: CLOTRIMAZOLE 1% 15 GM TUBE TP SCH ×2 (15:33→17:55)
[2020-07-09] MEDS: HYDROGEL DRESSING 90 GM TUBE TP SCH (15:33)
--- NOTE | 2020-07-09 17:44 | NUR ---
ms rn patient cleaned,no distress noted.
[2020-07-09] MEDS: CEFTRIAXONE 2 G in IV D5W 100 ML IV SCH (18:00)
--- NOTE | 2020-07-09 19:00 | NUR ---
ms rn patient on bed, 97% on 80%fio2,no distress noted.
--- NOTE | 2020-07-09 19:50 | NUR ---
TELE/RN OPENING NOTE RECEIVED PATIENT RESTING IN BED. AWAKE, ALERT AND ORIENTED TO NAME. CONTINUES ON MECHANICAL VENT WITH PATIENT TOLERATING SETTINGS WELL. NO SIGNS OR SYMPTOMS OF PAIN NOTED. CONTINUES ON RESTRAINTS WITH NO SIGNS OR SYMPTOMS OF SKIN INJURIES NOTED. BILATERAL RADIAL PULSES NOTED. CONTINUES ON NEPRO WITH PATIENT TOLERATING WELL. IV ACCESS TO MIKI PICC AND LEFT HAND INTACT AND PATENT. RIGHT IJ PERMACATH INTACT WITH NO SIGNS OR SYMPTOMS OF BLEEDING. CALL LIGHT WITHIN REACH. ASPIRATION, FALL AND SAFETY PRECAUTIONS MAINTAINED. WILL CONTINUE TO MONITOR.
[2020-07-09 20:00] VITALS: BP 104/62
[2020-07-09] MEDS: ATORVASTATIN 10 MG TABLET GT SCH (21:02)
--- NOTE | 2020-07-09 23:12 | NUR ---
PT FOUND STABLE ON AC 22 550 +5 70% FIO2, TRACH PATENT AND SECURED, CHARGE NURSE JESSICA INFORM THAT VENT ORDER WAS NOT ON THE SYSTEM, SHE MENTIONED TO TITRATE FIO2 AND SHE WILL CALL MD FOR CHANGES TO VENT SETTINGS, VENT SETTINGS WERE CHANGE DURING HD NOTED ON THE REPORT FROM DR BURT IN EMR, WILL CONTINUE TO MONITOR Addendum: 07/09/20 at 2317 by PALMIRA VELARDE RT Amended: Links added.
[2020-07-10] VITALS: BP 117/65
[2020-07-10] MEDS: BLOOD SUGAR DIAGNOSTIC 1 EACH STRIP IN SCH ×4 (00:25→17:46)
[2020-07-10] MEDS: INSULIN REGULAR, HUMAN 100 UNIT/ML 3 ML VIAL SQ PRN ×4 (00:32→17:47)
[2020-07-10 04:00] VITALS: BP 133/78
[2020-07-10] MEDS: MIDODRINE HCL (5MG) 5 MG TABLET GT SCH ×3 (04:46→21:16)
--- NOTE | 2020-07-10 05:53 | NUR ---
PER CONVERSATION WITH CHARGE NURSE JESSICA, PLACE PT BACK ON ORIGINAL VENT SETTINGS AC 12 550 50% +5 , VENT SETTINGS WAS CHANGE DURING HD, TITRATED FIO2 , NO ADVERSE REACTION OBSERVE, WILL CONTINUE TO MONITOR Addendum: 07/10/20 at 0555 by PALMIRA VELARDE RT Amended: Links added.
--- NOTE | 2020-07-10 06:15 | NUR ---
TELE/RN NOTE PATIENT VOMITED SMALL AMOUNT OF YELLOW/ALCANTAR COLORED EMESIS. TUBE FEEDING HELD AT THIS TIME. VS: BP 133/78 HR 107 RR 22 T 98.3 O2 SAT 94% ON MECHANICAL VENT. WILL CONTINUE TO MONITOR.
--- NOTE | 2020-07-10 06:20 | NUR ---
TELE/RN CLOSING NOTE PATIENT CURRENTLY RESTING IN BED. AWAKE, ALERT AND ORIENTED TO NAME. CONTINUES ON MECHANICAL VENT WITH PATIENT TOLERATING SETTINGS WELL. NO SIGNS OR SYMPTOMS OF PAIN NOTED. CONTINUES ON RESTRAINTS WITH NO SIGNS OR SYMPTOMS OF SKIN INJURIES NOTED. BILATERAL RADIAL PULSES NOTED. CONTINUES ON NEPRO WITH PATIENT TOLERATING WELL. NO RESIDUAL NOTED THIS SHIFT. IV ACCESS TO MIKI PICC AND LEFT HAND INTACT AND PATENT. RIGHT IJ PERMACATH INTACT WITH NO SIGNS OR SYMPTOMS OF BLEEDING. CALL LIGHT WITHIN REACH. ASPIRATION, FALL AND SAFETY PRECAUTIONS MAINTAINED. WILL ENDORSE PLAN OF CARE TO ONCOMING SHIFT.
[2020-07-10 06:48] LABS: BASOPHILS % (AUTO) 0.3 % (0.0-2.0); EOSINOPHILS % (AUTO) 0.7 % (0.0-6.0); HEMATOCRIT 33 % (39-51); HEMOGLOBIN 10.5 g/dL (13.5-17.5); LYMPHOCYTES # (AUTO) 0.5 /CMM (0.8-4.8); LYMPHOCYTES % (AUTO) 3.4 % (20.0-44.0); MEAN CORPUSCULAR HGB CONC 32 g/dl (31.0-36.0); MEAN CORPUSCULAR VOLUME 88 fL (80-96); MONOCYTES # (AUTO) 1.5 /CMM (0.1-1.30); MONOCYTES % (AUTO) 9.4 % (2.0-12.0); NEUTROPHILS # (AUTO) 13.7 /CMM (1.8-8.9); NEUTROPHILS % (AUTO) 86.2 % (43.0-81.0); PLATELET COUNT (AUTO) 85 /CMM (150-450); RED BLOOD CELL COUNT(AUTO) 3.77 MIL/uL (4.5-6.0); WHITE BLOOD COUNT (AUTO) 15.9 K/uL (4.3-11.0)
[2020-07-10 07:05] LABS: CALCIUM, SERUM 8.2 mg/dL (8.5-10.1); CREATININE 7.1 mg/dL (0.6-1.3); MAGNESIUM 2.4 mg/dL (1.8-2.4); PHOSPHORUS 4.9 mg/dL (2.5-4.9); POTASSIUM 3.2 mmol/L (3.5-5.1)
--- NOTE | 2020-07-10 07:24 | NUR ---
TELE/RN NOTE DURING CHANGE OF SHIFT REPORT PATIENT VOMITED SMALL AMOUNT OF COFFEE GROUND EMESIS. PATIENT NON-VERBAL AT BASELINE. TF BEING HELD. ENDORSED TO DAY SHIFT RN.
[2020-07-10 08:00] VITALS: BP 133/71
[2020-07-10 08:07] LABS: LYMPHOCYTES % (MANUAL) 4 % (16-48); MONOCYTES % (MANUAL) 7 % (0-11.0); NEUTROPHILS % (MANUAL) 89 (42-76)
[2020-07-10] MEDS: ASPIRIN 81 MG TAB.CHEW GT SCH (09:07)
[2020-07-10] MEDS: FERROUS SULFATE UDC 300 MG/5 ML UDC GT SCH ×2 (09:07→21:16)
[2020-07-10] MEDS: ESCITALOPRAM OXALATE (10 MG) 10 MG TABLET GT SCH (09:07)
[2020-07-10] MEDS: FAMOTIDINE (20 MG) 20 MG TABLET GT SCH (09:08)
[2020-07-10] MEDS: LACTOBACILLUS RHAMNOSUS GG 1 EACH CAP.SPRINK PO SCH ×2 (09:08→17:06)
[2020-07-10] MEDS: DILTIAZEM HCL 30 MG TABLET GT SCH ×2 (09:08→21:00)
[2020-07-10] MEDS: CLOTRIMAZOLE 1% 15 GM TUBE TP SCH ×2 (09:10→17:07)
[2020-07-10] MEDS: VIT B CMPLX 3/FA/VIT C/BIOTIN 1 TAB TABLET PO SCH (09:24)
[2020-07-10] MEDS: HYDROGEL DRESSING 90 GM TUBE TP SCH (09:27)
--- NOTE | 2020-07-10 11:34 | NUR ---
WATER RESOURCE ENGINEERING SPECIALIST OPENING NOTE PATIENT IS IN BED RESTING. PATIENT IS IN NO ACUTE DISTRESS. PATIENT IS ON VENT AND TRACH, OXYGEN SATURATION IS 98%, NO SOB NOTED. PATIENT IS ON TELE MONITOR READING ST WITH PVCs. PATIENT HAD AN EPISODE OF VOMITING COFFEE GROUND EMESIS. MD IS AWARE. SAFETY PRECAUTIONS ARE IN PLACE. BED IN THE LOWEST POSITION, SIDE RAILS ARE UP. CALL LIGHT WITHIN REACH. WILL CONTINUE TO MONITOR CLOSELY.
[2020-07-10 12:00] VITALS: BP 113/66
[2020-07-10 15:14] LABS: ABG BASE EXCESS -2.5 mmol/L; ABG PCO2 36.9 mmHg (35.0-45.0); ABG PH 7.393 (7.350-7.450); ABG PO2 100.9 mmHg (75.0-100.0); AaDO2 358.5 mmHg; COHb 1.7 % (0.5-1.5); MetHb 0.2 % (0.0-1.5); O2Hb 95.2 % (94.0-97.0); PEEP,BG 5 cm H2O; SITE, ABG Right Radial; VT, ABG 550 mL
[2020-07-10 16:00] VITALS: BP 129/95
[2020-07-10] MEDS: VANCOMYCIN HCL 125 MG/2.5 ML ORAL.SUSP PO SCH (17:10)
[2020-07-10] MEDS: CEFTRIAXONE 2 G in IV D5W 100 ML IV SCH (17:46)
--- NOTE | 2020-07-10 19:20 | NUR ---
MS RN CLOSING NOTE PATIENT IS IN BED RESTING. PATIENT IS IN NO ACUTE DISTRESS. PATIENT VENT AND TRACH AT 40% NO SOB NOTED. PATIENT HAD DIALYSES WITH 2L OUTPUT. SAFETY PRECAUTIONS ARE IN PLACE. BED IN THE LOWEST POSITION, SIDE RAILS ARE UP. CALL LIGHT WITHIN REACH. ENDORSE PATIENT TO DIGITAL DESIGN ENGINEER NURSE FOR DEMETRICE.
--- NOTE | 2020-07-10 19:50 | NUR ---
BIODIESEL PLANT SUPERINTENDENT NOTE: PATIENT RESTING IN BED, NO ACUTE DISTRESS NOTED. BREATHING EVEN AND UNLABORED, NO SOB NOTED. VENT SETTINGS IN PLACE PER MD ORDER. TELE READING SR 90 WITH PVC. PICC LINE TO MIKI IN PLACE. RIJ PERMACATH/HD SITE IN PLACE, NO BLEEDING NOTED. G-TUBE IN PLACE WITH NO RESIDUAL. HOB ELEVATED. RECTAL TUBE IN PLACE, EMPTY AT THIS TIME, JUST CHANGED DURING DAY SHIFT. BILATERAL SOFT RESTRAINTS IN PLACE, RELEASE AND WITH GOOD CIRCULATION. ISOLATION PRECAUTIONS OBSERVED. BED LOCKED AND IN LOWEST POSITION, CALL LIGHT IN REACH. WILL CONTINUE TO MONITOR THROUGHOUT SHIFT.
[2020-07-10 20:00] VITALS: BP 107/60
[2020-07-10] MEDS: ATORVASTATIN 10 MG TABLET GT SCH (21:16)
[2020-07-11] VITALS: BP 102/69
[2020-07-11] MEDS: BLOOD SUGAR DIAGNOSTIC 1 EACH STRIP IN SCH ×4 (00:10→17:38)
[2020-07-11] MEDS: VANCOMYCIN HCL 125 MG/2.5 ML ORAL.SUSP PO SCH ×4 (00:10→17:08)
[2020-07-11] MEDS: NEPRO 1,000 ML BOTTLE GT PRN (00:26)
[2020-07-11] MEDS: INSULIN REGULAR, HUMAN 100 UNIT/ML 3 ML VIAL SQ PRN ×4 (00:27→17:39)
--- NOTE | 2020-07-11 00:30 | NUR ---
SOLUTION DESIGN AND ANALYSIS MANAGER NOTE: PATIENT BLOOD SUGAR LEVEL 156MG/DL, TO RECEIVE 2 UNITS OF INSULIN PER SLIDING SCALE. NO S/S OF HYPER/HYPOGLYCEMIA NOTED. G-TUBE FEEDING INFUSING. HOB ELEVATED. BED LOCKED AND IN LOWEST POSITION, CALL LIGHT IN REACH. WILL CONTINUE TO MONITOR THROUGHOUT SHIFT.
[2020-07-11 04:46] VITALS: BP 133/72
[2020-07-11] MEDS: MIDODRINE HCL (5MG) 5 MG TABLET GT SCH ×3 (05:03→21:22)
[2020-07-11 06:22] LABS: BASOPHILS # (AUTO) 0.1 /CMM (0.0-0.2); BASOPHILS % (AUTO) 0.5 % (0.0-2.0); EOSINOPHILS % (AUTO) 1.2 % (0.0-6.0); HEMATOCRIT 32 % (39-51); HEMOGLOBIN 10.2 g/dL (13.5-17.5); LYMPHOCYTES # (AUTO) 0.7 /CMM (0.8-4.8); LYMPHOCYTES % (AUTO) 5.6 % (20.0-44.0); MEAN CORPUSCULAR HGB CONC 32 g/dl (31.0-36.0); MEAN CORPUSCULAR VOLUME 89 fL (80-96); MONOCYTES # (AUTO) 1.5 /CMM (0.1-1.30); MONOCYTES % (AUTO) 12.6 % (2.0-12.0); NEUTROPHILS # (AUTO) 9.7 /CMM (1.8-8.9); NEUTROPHILS % (AUTO) 80.1 % (43.0-81.0); PLATELET COUNT (AUTO) 82 /CMM (150-450); RED BLOOD CELL COUNT(AUTO) 3.62 MIL/uL (4.5-6.0); WHITE BLOOD COUNT (AUTO) 12.1 K/uL (4.3-11.0)
[2020-07-11 06:35] LABS: ALBUMIN 2.3 g/dL (3.4-5.0); BILIRUBIN,TOTAL 4.2 mg/dL (0.2-1.0); CALCIUM, SERUM 9.2 mg/dL (8.5-10.1); CREATININE 6.2 mg/dL (0.6-1.3); MAGNESIUM 2.4 mg/dL (1.8-2.4); POTASSIUM 3.6 mmol/L (3.5-5.1); TOTAL PROTEIN, SERUM 7.5 g/dL (6.4-8.2)
--- NOTE | 2020-07-11 06:35 | NUR ---
DYE MACHINE OPERATOR NOTE: PATIENT RESTING IN BED, NO ACUTE DISTRESS NOTED. BREATHING EVEN AND UNLABORED, NO SOB NOTED. VENT SETTINGS IN PLACE PER MD ORDER. TELE READING SR 90-100 WITH PVC. PICC LINE TO MIKI IN PLACE. RIJ PERMACATH/HD SITE IN PLACE, NO BLEEDING NOTED. G-TUBE IN PLACE WITH NO RESIDUAL. HOB ELEVATED. RECTAL TUBE IN PLACE. BILATERAL SOFT RESTRAINTS IN PLACE, RELEASE AND WITH GOOD CIRCULATION. ISOLATION PRECAUTIONS OBSERVED. BED LOCKED AND IN LOWEST POSITION, CALL LIGHT IN REACH. WILL ENDORSE TO DAY NURSE TO CONTINUE WITH PLAN OF CARE.
--- NOTE | 2020-07-11 07:32 | NUR ---
HR RECRUITER OPENING NOTE RECEIVED PT IN BED, SLEEPING BUT AROUSABLE AND RESPONSIVE WITH NO C/O PAIN AT THIS TIME. PT IS CURRENTLY ON CONTACT PRECAUTIONS FOR POSITIVE C-DIFF. PT IS ON VENT WITH SETTINGS SHILEY 8, AC 12, FIO2% 40%, TV 550, AND PEEP 5 WITH NO SOB, NO LABORED BREATHING AND NO S/SX RESPIRATORY DISTRESS NOTED. TELE MONITOR SHOWS NSR AT 91 WITH PVC'S. NO CARDIAC DISTRESS NOTED AT THIS TIME. PT HAS A RIGHT IJ PERMACATHAND MIKI PICC LINE, BOTH PATENT, INTACT AND FLUSHING WELL WITH NO REDNESS, INFLAMMATION, IRRITATION OR INFILTRATION NOTED. G-TUBE IS IN PLACE, PATENT, INTACT AND FLUSHES WELL, RUNNING NEPRO AT 65 ML/HR AT THIS TIME. SAFETY MEASURES IN PLACE: BED IS IN LOWEST, LOCKED POSITION WITH UPPER SIDE RAILS X 2 UP. CALL LIGHT PLACED WITHIN REACH. WILL CONTINUE TO MONITOR.
[2020-07-11 08:00] VITALS: BP 129/73
[2020-07-11] MEDS: FAMOTIDINE (20 MG) 20 MG TABLET GT SCH (08:40)
[2020-07-11] MEDS: ASPIRIN 81 MG TAB.CHEW GT SCH (08:40)
[2020-07-11] MEDS: ESCITALOPRAM OXALATE (10 MG) 10 MG TABLET GT SCH (08:40)
[2020-07-11] MEDS: DILTIAZEM HCL 30 MG TABLET GT SCH ×2 (08:40→21:21)
[2020-07-11] MEDS: FERROUS SULFATE UDC 300 MG/5 ML UDC GT SCH ×2 (08:40→21:20)
[2020-07-11] MEDS: VIT B CMPLX 3/FA/VIT C/BIOTIN 1 TAB TABLET PO SCH (08:41)
[2020-07-11] MEDS: LACTOBACILLUS RHAMNOSUS GG 1 EACH CAP.SPRINK PO SCH ×2 (08:41→16:53)
[2020-07-11] MEDS: HYDROGEL DRESSING 90 GM TUBE TP SCH (08:45)
[2020-07-11] MEDS: CLOTRIMAZOLE 1% 15 GM TUBE TP SCH ×2 (08:45→17:05)
--- NOTE | 2020-07-11 09:14 | NUR ---
RN NOTES HEMODIALYSIS JUST STARTED BY HD NURSE SILVANO VIA RIGHT IJ HD CATH. V/S CHECKED: BP 99/66, P 88, R 18 AND T 98.5F. WILL CONTINUE TO MONITOR.
[2020-07-11 12:00] VITALS: BP 103/61
--- NOTE | 2020-07-11 12:04 | NUR ---
RN NOTES PT'S HEMODIALYSIS FINISHED AND TOLERATED PROCEDURE. NO OUTPUT PER HD NURSE SILVANO. POST HD V/S: BP 109/69, P 88, R 20 AND T 98F. WILL CONTINUE TO MONITOR.
[2020-07-11 16:00] VITALS: BP 100/57
[2020-07-11] MEDS: CEFTRIAXONE 2 G in IV D5W 100 ML IV SCH (17:05)
--- NOTE | 2020-07-11 18:41 | NUR ---
DIRECTOR OF MARKETING CLOSING NOTES PATIENT IN BED AWAKE AT THIS TIME. HOB ELEVATED. A/O X1. MOUTH WORDS AT TIMES. PT WITH TRACH CONNECTED TO MECHANICAL VENTILATOR AT PRESCRIBED PARAMETERS, TOLERATING SETTINGS WELL, NO ACUTE RESPIRATORY DISTRESS NOTED DURING SHIFT. EXTERNAL SHUTTLE ROUTE VEHICLE OPERATOR SHOWS CURRENT READING OF SR WITH PVC'S, HR ON THE 90'S, NO S/S OF CARDIAC DISTRESS NOTED. B/L SOFT WRIST RESTRAINTS IN PLACE, RADIAL PULSES NOTED. MIKI TRIPLE LUMEN PICC LINE INTACT, PATENT AND FLUSHES WELL. RIGHT IJ PERMACATH IN PLACE WITH NO ACTIVE BLEEDING NOTED AT SITE. G-TUBE IN PLACE WITH FEEDING OF NEPRO @ 65ML/HR IN PROGRESS AND TOLERATING WELL. RECTAL TUBE IN PLACE WITH GREENISH BLACK STOOL OUTPUT NOTED. ASPIRATION AND SAFETY PRECAUTIONS MAINTAINED. BED IN LOWEST LOCKED POSITION W/ SR UP X2. CALL LIGHT WITHIN REACH. WILL ENDORSE DEMETRICE TO INCOMING NIGHT NURSE.
--- NOTE | 2020-07-11 19:40 | NUR ---
TELERN AWAKE, HOB 30 DEGREES, GT FEEDINGS NEPHRO AT 65 CC/HR WELL TOLERATED. NO RESIDUALS. RECTAL TUBE INTACT, SCANTY LOOSE DARK GREENINSH STOOLS. VENT DEPENDENT, NO RESPIRATORY DISTRESS. CONTINUED.
[2020-07-11 20:00] VITALS: BP 121/78
[2020-07-11] MEDS: ATORVASTATIN 10 MG TABLET GT SCH (21:21)
--- NOTE | 2020-07-11 21:30 | NUR ---
TELERN DUE MEDS VIA GT ADMINISTERED. V/S STABLE. REPOSTIONED.
[2020-07-12] VITALS: BP 139/74
[2020-07-12] MEDS: VANCOMYCIN HCL 125 MG/2.5 ML ORAL.SUSP PO SCH ×4 (00:16→18:05)
[2020-07-12] MEDS: BLOOD SUGAR DIAGNOSTIC 1 EACH STRIP IN SCH ×4 (00:17→18:10)
[2020-07-12] MEDS: INSULIN REGULAR, HUMAN 100 UNIT/ML 3 ML VIAL SQ PRN ×4 (00:42→18:07)
--- NOTE | 2020-07-12 00:55 | NUR ---
TELERN BS WAS 183 COVERED WITH 4 UNITS REGULAR INSULIN SQ PER SLIDING SCALE. REPOSITIONED, KEPT COMFORTABLE.DUE MEDS ADMINISTERED, RECHECKED FOR RESIDUALS LESS THAN 5 CC NOTED. GT REMAINS PATENT. FEEDINGS WELL TOLERATED. RT AT BEDSIDE.
[2020-07-12 04:00] VITALS: BP 126/68
[2020-07-12] MEDS: MIDODRINE HCL (5MG) 5 MG TABLET GT SCH ×3 (05:08→21:44)
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
[2020-07-12] MEDS: NEPRO 1,000 ML BOTTLE GT PRN (06:02)
[2020-07-12 06:28] LABS: BASOPHILS % (AUTO) 0.3 % (0.0-2.0); EOSINOPHILS % (AUTO) 1.2 % (0.0-6.0); HEMATOCRIT 30 % (39-51); HEMOGLOBIN 9.6 g/dL (13.5-17.5); LYMPHOCYTES # (AUTO) 0.8 /CMM (0.8-4.8); LYMPHOCYTES % (AUTO) 7.7 % (20.0-44.0); MEAN CORPUSCULAR HGB CONC 32 g/dl (31.0-36.0); MEAN CORPUSCULAR VOLUME 89 fL (80-96); MONOCYTES # (AUTO) 1.8 /CMM (0.1-1.30); MONOCYTES % (AUTO) 16.7 % (2.0-12.0); NEUTROPHILS # (AUTO) 8.2 /CMM (1.8-8.9); NEUTROPHILS % (AUTO) 74.1 % (43.0-81.0); PLATELET COUNT (AUTO) 91 /CMM (150-450); RED BLOOD CELL COUNT(AUTO) 3.35 MIL/uL (4.5-6.0)
[2020-07-12 06:59] LABS: CALCIUM, SERUM 8.2 mg/dL (8.5-10.1); CREATININE 5.6 mg/dL (0.6-1.3); MAGNESIUM 2.3 mg/dL (1.8-2.4); PHOSPHORUS 4.4 mg/dL (2.5-4.9); POTASSIUM 3.1 mmol/L (3.5-5.1)
--- NOTE | 2020-07-12 07:30 | NUR ---
PAINTER NOTES PT IN BED, AWAKE, NODS WHEN SPOKEN TO, NO SIGN OF PAIN OR DISTRESS, GT FEEDING INFUSING WELL, TOLERATING WELL, FLEXISEAL IN PLACE, KEPT WARM AND COMFORTABLE.
[2020-07-12 08:00] VITALS: BP 140/64
[2020-07-12] MEDS: FERROUS SULFATE UDC 300 MG/5 ML UDC GT SCH ×2 (08:34→21:44)
[2020-07-12] MEDS: ASPIRIN 81 MG TAB.CHEW GT SCH (08:34)
[2020-07-12] MEDS: VIT B CMPLX 3/FA/VIT C/BIOTIN 1 TAB TABLET PO SCH (08:34)
[2020-07-12] MEDS: DILTIAZEM HCL 30 MG TABLET GT SCH ×2 (08:34→21:45)
[2020-07-12] MEDS: ESCITALOPRAM OXALATE (10 MG) 10 MG TABLET GT SCH (08:35)
[2020-07-12] MEDS: FAMOTIDINE (20 MG) 20 MG TABLET GT SCH (08:35)
[2020-07-12] MEDS: LACTOBACILLUS RHAMNOSUS GG 1 EACH CAP.SPRINK PO SCH ×2 (08:35→16:34)
[2020-07-12] MEDS: HYDROGEL DRESSING 90 GM TUBE TP SCH (08:36)
[2020-07-12] MEDS: CLOTRIMAZOLE 1% 15 GM TUBE TP SCH ×2 (08:36→16:35)
[2020-07-12 09:09] LABS: LYMPHOCYTES % (MANUAL) 7 % (16-48); MONOCYTES % (MANUAL) 12 % (0-11.0); NEUTROPHILS % (MANUAL) 81 (42-76)
[2020-07-12 12:00] VITALS: BP 126/73
--- NOTE | 2020-07-12 12:59 | NUR ---
MANNEQUIN REFINISHER NOTES MIDODRINE NOT GIVEN, BP 126/73
[2020-07-12 16:00] VITALS: BP_SYST 126; BP_SYST 132; BP_DIAS 100; BP_DIAS 69
[2020-07-12] MEDS: CEFTRIAXONE 2 G in IV D5W 100 ML IV SCH (18:05)
--- NOTE | 2020-07-12 19:00 | NUR ---
HUMAN RESOURCES GENERALIST NOTES PT IN BED, ASLEEP, EASY TO AROUSE, ALERT, TRIES TO MOUTH WORDS, NO SIGN OF PAIN, GT FEEDING INFUSING WELL, FLEXISEAL IN PLACE, STILL NOTED WITH DIARRHEA, PM CARE PROVIDED, WOUND TREATMENT AND DRESSING CHANGE DONE, PM MEDS GIVEN, REPOSITIONED FOR COMFORT AND CIRCULATION.
--- NOTE | 2020-07-12 19:10 | NUR ---
COMMUNICATIONS DEPARTMENT CHAIRPERSON OPENING NOTES: PATIENT IN BED, ASLEEP, AROUSABLE. NO S/S OF DISTRESS NOTED. BED ALARM ON. BED IN LOWEST AND LOCKED POSITION. HOB ELEVATED AT ALL TIMES. WITH TRACH INTACT CONNECTED TO THE VENT, DRESSING IS CLEAN, DRY, AND INTACT. WITH GT FEEDING ON, GT INTACT WITH NO SKIN IRRITATIONS AROUND THE GT SITE. WITH BILATERAL SOFT WRISTS RESTRAINTS ON, SKIN AND CIRCULATIONS ARE WNL. WITH RECTAL TUBE INTACT, DRAINING LIQUIDY BROWNISH STOOL.
[2020-07-12 20:49] VITALS: BP 118/63
[2020-07-12] MEDS: ATORVASTATIN 10 MG TABLET GT SCH (21:45)
--- NOTE | 2020-07-12 22:00 | NUR ---
NO GT FEEDING RESIDUAL NOTED.
[2020-07-13] VITALS (7 sets, daily range): BP systolic 88–135; BP diastolic 53–79
[2020-07-13] MEDS: INSULIN REGULAR, HUMAN 100 UNIT/ML 3 ML VIAL SQ PRN ×4 (01:15→17:56)
[2020-07-13] MEDS: VANCOMYCIN HCL 125 MG/2.5 ML ORAL.SUSP PO SCH ×5 (01:16→23:57)
--- NOTE | 2020-07-13 06:00 | NUR ---
SOLAR PROJECT MANAGER CLOSING NOTES: PATIENT IN BED, AWAKE, NO S/S OF DISTRESS NOTED. BED ALARM ON. BED IN LOWEST AND LOCKED POSITION. HOB ELEVATED AT ALL TIMES. OFFLOADED, HEELS OFFLOADED. TURNED AND REPOSITIONED Q 2HOURS. WOUND TREATMENT DONE.
--- NOTE | 2020-07-13 06:02 | NUR ---
LEFT HAND PERIPHERAL IV REMOVED, TIP IS INTACT.
[2020-07-13] MEDS: MIDODRINE HCL (5MG) 5 MG TABLET GT SCH ×3 (06:13→21:08)
[2020-07-13] MEDS: BLOOD SUGAR DIAGNOSTIC 1 EACH STRIP IN SCH ×4 (06:32→17:45)
[2020-07-13 07:12] LABS: BASOPHILS # (AUTO) 0.1 /CMM (0.0-0.2); BASOPHILS % (AUTO) 0.6 % (0.0-2.0); EOSINOPHILS % (AUTO) 1.5 % (0.0-6.0); HEMATOCRIT 29 % (39-51); HEMOGLOBIN 9.3 g/dL (13.5-17.5); MEAN CORPUSCULAR HGB CONC 32 g/dl (31.0-36.0); MEAN CORPUSCULAR VOLUME 90 fL (80-96); MONOCYTES % (AUTO) 16.3 % (2.0-12.0); NEUTROPHILS % (AUTO) 73.6 % (43.0-81.0); PLATELET COUNT (AUTO) 98 /CMM (150-450); RED BLOOD CELL COUNT(AUTO) 3.22 MIL/uL (4.5-6.0); WHITE BLOOD COUNT (AUTO) 12.2 K/uL (4.3-11.0)
--- NOTE | 2020-07-13 07:30 | NUR ---
CONTROL ELECTRICIAN NOTES PT IN BED, AWAKE, NO COMPLAINT OF PAIN, NOT IN DISTRESS, ABLE TO MOUTH WORDS, ON TRACH/VENT, NO SOB NOTED, GT FEEDING INFUSING WELL, REPOSITIONED FOR COMFORT, NEEDS ATTENDED, SEEN AND EXAMINED BY DR. PATEL.
[2020-07-13 07:57] LABS: CALCIUM, SERUM 8.7 mg/dL (8.5-10.1); CREATININE 6.8 mg/dL (0.6-1.3); POTASSIUM 3.1 mmol/L (3.5-5.1)
[2020-07-13] MEDS: LACTOBACILLUS RHAMNOSUS GG 1 EACH CAP.SPRINK PO SCH ×2 (08:54→17:55)
[2020-07-13] MEDS: ESCITALOPRAM OXALATE (10 MG) 10 MG TABLET GT SCH (08:54)
[2020-07-13] MEDS: FAMOTIDINE (20 MG) 20 MG TABLET GT SCH (08:54)
[2020-07-13] MEDS: FERROUS SULFATE UDC 300 MG/5 ML UDC GT SCH ×2 (08:54→21:07)
[2020-07-13] MEDS: ASPIRIN 81 MG TAB.CHEW GT SCH (08:54)
[2020-07-13] MEDS: VIT B CMPLX 3/FA/VIT C/BIOTIN 1 TAB TABLET PO SCH (08:54)
[2020-07-13] MEDS: DILTIAZEM HCL 30 MG TABLET GT SCH ×2 (08:56→21:08)
--- NOTE | 2020-07-13 08:56 | NUR ---
FILTER WASHER NOTES CARDIZEM NOT GIVEN, PT WITH ONGOING HEMODIALYSIS.
[2020-07-13] MEDS: HYDROGEL DRESSING 90 GM TUBE TP SCH (09:00)
[2020-07-13] MEDS: CLOTRIMAZOLE 1% 15 GM TUBE TP SCH ×2 (09:00→18:02)
[2020-07-13 10:05] LABS: EOSINOPHILS % (MANUAL) 4 % (0-4); LYMPHOCYTES % (MANUAL) 6 % (16-48); MONOCYTES % (MANUAL) 15 % (0-11.0); NEUTROPHILS % (MANUAL) 75 (42-76)
[2020-07-13] MEDS ORDERED: POTASSIUM CHLORIDE 20 MEQ TAB.PRT.SR PO ONE (10:30)
[2020-07-13] MEDS: PROSOURCE / PROSTAT (PYXIS) 30 ML UDC GT SCH (17:55)
[2020-07-13] MEDS: CEFTRIAXONE 2 G in IV D5W 100 ML IV SCH (17:58)
--- NOTE | 2020-07-13 18:22 | NUR ---
RN MS NOTES PT in bed resting. Awake. Wound tx and dressing change done, tolerates gtube feeding well. Tolerates medication through tube well. ABle to make some needs known. Reposionted for comfort. Completed and tolerated dialysis well.
--- NOTE | 2020-07-13 19:10 | NUR ---
PROCESSING CLERK OPENING NOTES: RECEIVED PATIENT IN BED, ASLEEP, EASILY AROUSABLE. BED ALARM ON. BED IN LOWEST AND LOCKED POSITION. HOB ELEVATED AT ALL TIMES. NO S/S OF DISTRESS NOTED. WITH GT INTACT, NO SKIN IRRITATIONS AROUND THE GT SITE AND NO LEAKING NOTED, WITH TF OF NEPRO AT 65ML/HOUR RUNNING.WITH TRACH TO VENT MACHINE, WITH DRESSING CLEAN,DRY AND INTACT.WITH BILATERAL SOFT WRISTS RESTRAINTS ON, SKIN AND CIRCULATIONS ARE WNL. WITH RECTAL TUBE INTACT, DRAINING LIQUIDY BROWNISH COLOR STOOL. HEELS OFFLOADED.
--- NOTE | 2020-07-13 21:00 | NUR ---
NO GT RESIDUAL NOTED.
[2020-07-13] MEDS: ATORVASTATIN 10 MG TABLET GT SCH (21:08)
[2020-07-13] MEDS: ACETAMINOPHEN 325 MG TABLET PO PRN (21:08)
[2020-07-14] MEDS: INSULIN REGULAR, HUMAN 100 UNIT/ML 3 ML VIAL SQ PRN ×5 (00:11→23:47)
[2020-07-14] MEDS: BLOOD SUGAR DIAGNOSTIC 1 EACH STRIP IN SCH ×5 (00:12→23:39)
[2020-07-14] MEDS: NEPRO 1,000 ML BOTTLE GT PRN (00:17)
[2020-07-14] MEDS: Z GUARD REMEDY 2 OZ OINT TP PRN (00:18)
[2020-07-14 04:00] VITALS: BP 107/67
[2020-07-14] MEDS: MIDODRINE HCL (5MG) 5 MG TABLET GT SCH ×3 (05:41→21:37)
[2020-07-14] MEDS: VANCOMYCIN HCL 125 MG/2.5 ML ORAL.SUSP PO SCH ×4 (05:42→23:38)
--- NOTE | 2020-07-14 06:34 | NUR ---
WELDING INSPECTOR CLOSING NOTES: PATIENT IN BED, AWAKE, NO S/S OF DISTRESS NOTED. CALL LIGHT WITHIN REACH, TYLENOL 650MG PER GT GIVEN FOR TEMP 99.0 LAST NIGHT, LATEST TEMP IS 98.0 BED ALARM ON. BED IN LOWEST AND LOCKED POSITION. HOB ELEVATED AT ALL TIMES. WITH GT FEEDING NEPRO AT 65ML/HOUR, NO RESIDUAL. OFFLOADED. TURNED AND REPOSITIONED Q 2HOURS.SACROCOCCYX AND PERINEAL AREA WOUND TREATMENT DONE, AND DRESSING CHANGED ORDERED. WITH RECTAL TUBE INTACT.
[2020-07-14 06:43] LABS: BASOPHILS # (AUTO) 0.1 /CMM (0.0-0.2); BASOPHILS % (AUTO) 0.6 % (0.0-2.0); EOSINOPHILS % (AUTO) 0.5 % (0.0-6.0); HEMATOCRIT 27 % (39-51); HEMOGLOBIN 8.5 g/dL (13.5-17.5); LYMPHOCYTES # (AUTO) 1.1 /CMM (0.8-4.8); LYMPHOCYTES % (AUTO) 7.9 % (20.0-44.0); MEAN CORPUSCULAR HGB CONC 32 g/dl (31.0-36.0); MEAN CORPUSCULAR VOLUME 93 fL (80-96); MONOCYTES # (AUTO) 2.1 /CMM (0.1-1.30); MONOCYTES % (AUTO) 15.7 % (2.0-12.0); NEUTROPHILS # (AUTO) 10.2 /CMM (1.8-8.9); NEUTROPHILS % (AUTO) 75.3 % (43.0-81.0); PLATELET COUNT (AUTO) 89 /CMM (150-450); RED BLOOD CELL COUNT(AUTO) 2.89 MIL/uL (4.5-6.0); WHITE BLOOD COUNT (AUTO) 13.5 K/uL (4.3-11.0)
--- NOTE | 2020-07-14 07:44 | NUR ---
RN MS OPENING NOTES Patient recieved in bed AOx3, understands others and mouths words/ nods to communicate with others. Respirations even and unlabored with no signs of distress. no c/o of pain or distress/discomfort. Bed in lowest and locked position. HOB elevated at all times, turned and repositioned q2hrs, rectal tube intact. Call light within easy reach and promptly answered.
[2020-07-14 08:00] VITALS: BP 106/66
[2020-07-14 08:37] LABS: CALCIUM, SERUM 8.6 mg/dL (8.5-10.1); CREATININE 6.4 mg/dL (0.6-1.3); POTASSIUM 3.3 mmol/L (3.5-5.1)
[2020-07-14] MEDS: ASPIRIN 81 MG TAB.CHEW GT SCH (08:42)
[2020-07-14] MEDS: FAMOTIDINE (20 MG) 20 MG TABLET GT SCH (08:42)
[2020-07-14] MEDS: VIT B CMPLX 3/FA/VIT C/BIOTIN 1 TAB TABLET PO SCH (08:43)
[2020-07-14] MEDS: ESCITALOPRAM OXALATE (10 MG) 10 MG TABLET GT SCH (08:43)
[2020-07-14] MEDS: LACTOBACILLUS RHAMNOSUS GG 1 EACH CAP.SPRINK PO SCH ×2 (08:43→16:32)
[2020-07-14] MEDS: PROSOURCE / PROSTAT (PYXIS) 30 ML UDC GT SCH ×3 (08:43→16:33)
[2020-07-14] MEDS: FERROUS SULFATE UDC 300 MG/5 ML UDC GT SCH ×2 (08:43→21:36)
[2020-07-14] MEDS: DILTIAZEM HCL 30 MG TABLET GT SCH ×2 (08:43→21:36)
[2020-07-14] MEDS: CLOTRIMAZOLE 1% 15 GM TUBE TP SCH ×2 (08:53→16:33)
[2020-07-14] MEDS: HYDROGEL DRESSING 90 GM TUBE TP SCH (08:53)
[2020-07-14 09:49] LABS: BAND % (MANUAL) 2 % (0.0-5.0); LYMPHOCYTES % (MANUAL) 5 % (16-48); MONOCYTES % (MANUAL) 11 % (0-11.0); NEUTROPHILS % (MANUAL) 82 (42-76)
[2020-07-14 12:00] VITALS: BP 107/62
[2020-07-14] MEDS: ACETAMINOPHEN 325 MG TABLET PO PRN (14:56)
[2020-07-14 16:00] VITALS: BP 127/77
[2020-07-14] MEDS: CEFTRIAXONE 2 G in IV D5W 100 ML IV SCH (17:01)
--- NOTE | 2020-07-14 18:27 | NUR ---
RN NOTES PATIENT'S MIKI TRIPLE LUMEN PICC LINE REMOVED TODAY FOLLOWING INSERTION OF MIDLINE ON REGINA. PROCEDURE TOLERATED WELL BY PATIENT; NO BLEEDING NOTED.
--- NOTE | 2020-07-14 18:59 | NUR ---
RN MS CLOSING NOTES Patient is resting in bed, able to open eyes. Understands others and mouths words/nods staff when spoken to. Breathing even and unlabored; currently on trach/vent w/ settings tolerated at this time. Patient is incontinent; x1 void in bed. Due meds given. Repositioned in bed and kept comfortable. Rectal tube in place. Safety precs maintained. HOB elevated and aspiration precs observed. Will endorse to night clerk auditor rn for berenice.
--- NOTE | 2020-07-14 19:45 | NUR ---
SCRAP BALLER NOPTES RECEIVED,RESTING COMFORTABLY ON BED,ON TRACH/VENT,SETTINGS TOLERATED WELL,SR-84 ON TELE MONITOR.NOTED BILATERA SOFT WRIST RESTRAINTS FOR SAFETY,TRYING TO PULL OUT TUBINGS,WITH REGINA MIDLINE FOR MEDS,RIGHT IJ PERMA CATH FOR HD TREATMENT,SACRAL WOUND DRESSING INTACT AND DRY.RECTAL TUBE IN PLACE WITH SCANTY OUTPUT LIQUID OUTPUT.WITH GT FEEDING OF NEPRO 65ML/HR RATE,TOLERATED WELL.HOB ELEVATED FOR ASPIRATION PRECAUTION,ISOLATION FOR C-DIFF.WILL CONTINUE TO MONITOR STATUS.
[2020-07-14 20:00] VITALS: BP 156/66
[2020-07-14] MEDS: ATORVASTATIN 10 MG TABLET GT SCH (21:37)
[2020-07-15] VITALS (14 sets, daily range): BP systolic 103–139; BP diastolic 51–88
--- NOTE | 2020-07-15 | NUR ---
RECTIFYING OPERATOR NOTES ACCU-CHECK BLOOD SUGAR CHECK 174,COVERED WITH HUMULIN R 4 UNITS PER SLIDING SCALE.
[2020-07-15] MEDS: MIDODRINE HCL (5MG) 5 MG TABLET GT SCH ×3 (04:24→21:50)
[2020-07-15] MEDS: VANCOMYCIN HCL 125 MG/2.5 ML ORAL.SUSP PO SCH ×3 (05:30→18:36)
[2020-07-15] MEDS: BLOOD SUGAR DIAGNOSTIC 1 EACH STRIP IN SCH ×3 (05:30→18:35)
--- NOTE | 2020-07-15 05:30 | NUR ---
CERTIFIED PHARMACIST ASSISTANT NOTES ACCU-CHECK BLOOD SUGAR CHECK 179,COVERED WITH HUMULIN R 4 UNITS PER SLIDING SCALE.GT FEEDING IN PROGRESS,NO RESIDUAL VOLUME NOTED.
[2020-07-15] MEDS: INSULIN REGULAR, HUMAN 100 UNIT/ML 3 ML VIAL SQ PRN ×2 (05:52→12:43)
[2020-07-15 06:42] LABS: BASOPHILS # (AUTO) 0.1 /CMM (0.0-0.2); BASOPHILS % (AUTO) 0.6 % (0.0-2.0); HEMATOCRIT 28 % (39-51); HEMOGLOBIN 8.9 g/dL (13.5-17.5); LYMPHOCYTES % (AUTO) 6.7 % (20.0-44.0); MEAN CORPUSCULAR HGB CONC 32 g/dl (31.0-36.0); MEAN CORPUSCULAR VOLUME 94 fL (80-96); MONOCYTES % (AUTO) 14.2 % (2.0-12.0); NEUTROPHILS # (AUTO) 11.1 /CMM (1.8-8.9); NEUTROPHILS % (AUTO) 77.5 % (43.0-81.0); PLATELET COUNT (AUTO) 97 /CMM (150-450); RED BLOOD CELL COUNT(AUTO) 3.01 MIL/uL (4.5-6.0); WHITE BLOOD COUNT (AUTO) 14.3 K/uL (4.3-11.0)
--- NOTE | 2020-07-15 06:44 | NUR ---
QUALITY ASSURANCE ENGINEER NOTES NO SIGNIFICANT CHANGE IN STATUS,VENT SETTINGS TOLERATED WELL.GT FEEDING IN PROGRESS,WITH LOOSE STOOL NOTED,RECTAL TUBE IN PLACE DRAINS 450ML LIQUID STOOL.DRESSING CHANGE TO SACRAL WOUND DONE.REPOSITION PER PROTOCOL.IN NO ACUTE DISTRESS.
[2020-07-15 06:55] LABS: CALCIUM, SERUM 8.8 mg/dL (8.5-10.1); CREATININE 7.4 mg/dL (0.6-1.3); POTASSIUM 3.3 mmol/L (3.5-5.1)
[2020-07-15] MEDS ORDERED: IV D5/ 0.9% NACL 1,000 ML IV PRN (07:30)
--- NOTE | 2020-07-15 07:41 | NUR ---
RN MS OPENING NOTES Patient recieved in bed, awake and AOx3. Able to understand information, able to mouth words, nod his head to communicate. No respiratory distress observed, respirations unlabored and even. Patient did no complain of any pain or discomfort at this time. Bed in lowest and locked position. HOB elevated at all times, turned and repositioned q2hrs, rectal tube intact. Call light within easy reach and promptly answered.
--- NOTE | 2020-07-15 07:51 | NUR ---
RN NOTES PATIENT WAS SEEN BY DR. PATEL THIS AM W/ ORDERS NOTED. MD MADE AWARE OF PICC LINE REMOVAL AND BLOOD DRAW FOR BLOOD CX. PATIENT CURRENTLY AFEBRILE AND NOT IN DISTRESS. WILL CONTINUE TO MONITOR.
[2020-07-15] MEDS: FAMOTIDINE (20 MG) 20 MG TABLET GT SCH (09:23)
[2020-07-15] MEDS: ASPIRIN 81 MG TAB.CHEW GT SCH (09:24)
[2020-07-15] MEDS: LACTOBACILLUS RHAMNOSUS GG 1 EACH CAP.SPRINK PO SCH ×2 (09:24→17:26)
[2020-07-15] MEDS: ESCITALOPRAM OXALATE (10 MG) 10 MG TABLET GT SCH (09:24)
[2020-07-15] MEDS: VIT B CMPLX 3/FA/VIT C/BIOTIN 1 TAB TABLET PO SCH (09:24)
[2020-07-15] MEDS: DILTIAZEM HCL 30 MG TABLET GT SCH ×2 (09:24→21:51)
[2020-07-15] MEDS: PROSOURCE / PROSTAT (PYXIS) 30 ML UDC GT SCH ×3 (09:25→17:26)
[2020-07-15] MEDS: FERROUS SULFATE UDC 300 MG/5 ML UDC GT SCH ×2 (09:25→21:50)
[2020-07-15] MEDS: CLOTRIMAZOLE 1% 15 GM TUBE TP SCH ×2 (09:26→17:26)
[2020-07-15] MEDS: HYDROGEL DRESSING 90 GM TUBE TP SCH (09:26)
--- NOTE | 2020-07-15 11:45 | NUR ---
RN NOTES DIALYSIS NURSE DOMONIQUE INFORMED ME AND BO, DANN, THAT PATIENT ACCIDENTALLY PULLED OUT RIGHT IJ HD CATH. MINIMAL BLEEDING ON SITE NOTED; PRESSURE APPLIED W/ GAUZE. BLEEDING STOPPED AT THIS TIME. PER DOMONIQUE, WILL INFORM AND SILVANO, DIALYSIS ROUTING MACHINE OPERATOR.
--- NOTE | 2020-07-15 13:34 | NUR ---
RN NOTES CALLED KWADWO, SISTER/RP, AND LEFT MESSAGE FOR TELEPHONE CONSENT FOR PROCEDURE.
--- NOTE | 2020-07-15 13:39 | NUR ---
RN NOTES CALLED AND LEFT MESSAGE TO SON KARINA MENJIVAR JR. REGARDING CONSENT FOR PROCEDURE.
--- NOTE | 2020-07-15 14:55 | NUR ---
RN NOTES SPOKE W/ KARINA MENJIVAR, JR, SON, AND GIVEN CONSENT FOR RIVAS PROCEDURE. INFORMED BY CHARGE NURSE THAT PATIENT NEEDS TO BE TRANSFERRED TO ICU ROOM 262 FOR PROCEDURE W/ DR. MUHAMMAD.
--- NOTE | 2020-07-15 15:55 | NUR ---
RN NOTES RIVAS PROCEDURE DONE BY DR. MUHAMMAD. USED 50MCG/ML FENTANYL IV AND 2MG VERSED IV. VS CHECKED AND TAKEN. WILL MONITOR PATIENT CLOSELY.
[2020-07-15] MEDS ORDERED: MIDAZOLAM HCL 2 MG/2ML VIAL IV ONE (16:00)
[2020-07-15] MEDS ORDERED: FENTANYL PF 100MCG/2ML AMPUL IV PRN (16:00)
--- NOTE | 2020-07-15 16:33 | NUR ---
RN NOTES PT S/P TRANSESOPHAGEAL ECHOCARDIOGRAM BY DR MUHAMMAD. PT AWAKE AND ALERT NOW. V/S Q 5 MINUTES X 30 MINUTES TAKEN, RECORDED AND STABLE. WILL BE TRANSFERRING BACK PT TO M/S 3WEST RM 312-1.
--- NOTE | 2020-07-15 16:44 | NUR ---
RN NOTES PATIENT RETURNED BACK TO UNIT FROM ICU, S/P RIVAS PROCEDURE. PATIENT IS AWAKE AND RESPONSIVE. VS TAKEN: BP-121/65, HR-88, T-97.8, O2 SAT-100%
[2020-07-15] MEDS: CEFTRIAXONE 2 G in IV D5W 100 ML IV SCH (18:36)
--- NOTE | 2020-07-15 19:15 | NUR ---
RN MS CLOSING NOTES Patient in bed resting, awake, eyes open, able to mouth words. Breathing unlabored and even, still on trach/vent, w/ setting tolerated by patient, no respiratory distress. REGINA midline intact and patent; rectal tube in place. S/p RIVAS procedure today; tolerated procedure well. Right IJ HD cath accidentally removed as per dialysis nurse; no bleeding noted at previous HD site. Safety precs maintained. Endorsed to shift superintendent caustic cresylate RN for berenice.
[2020-07-15] MEDS: ATORVASTATIN 10 MG TABLET GT SCH (21:50)
--- NOTE | 2020-07-15 22:18 | NUR ---
LINE SERVICER OPENING NOTES PATIENT A/O X1; OPENS EYES TO NAME, LYING COMFORTABLE IN BED. PATIENT HAS TRACH AND TOLERATING VENT SETTINGS WELL WITH NO SOB. EXTERNAL CARDIAC TELE MONITOR READS SR WITH PVC AND HR AT 83; NO S/S OF DISTRESS AT THIS TIME. MIDLINE TO REGINA; PATENT, INTACT, AND NO INFILTRATION NOTED. GTUBE PEG PATENT AND INTACT; NEPHRO 1.2 @ 60ML/HR; TOLERATING FEEDINGS WELL. FLEXISEAL RECTAL TUBE INTACT; BROWN LOOSE FORMED BM NOTED. DRESSING TO RIGHT IJ; C/D/I; NO BLEEDING NOTED AND INFECTIOUS DISEASE AWARE. PATIENT HAS NO S/S OF PAIN AT THIS TIME. ALL SAFETY MEASURES IN PLACE; BED IN LOWEST LOCKED POSITION; SIDE RAILS UP X2, CALL LIGHT WITHIN EASY REACH; BED ALARM ON. PATIENT MEDICALLY STABLE AT THIS TIME.
--- NOTE | 2020-07-15 23:15 | NUR ---
GAS DISTRIBUTION PLANT OPERATOR NOTES STACEY MCKINNEY NP INFORMED RN THAT PATIENT WILL HAVE HD CATH INSERTED PER DR. IDAL. CALLED KARINA ROBERTSON (SON) AND ERIN (SISTER) FOR CONSENT FOR PROCEDURE, DID NOT ASSEMBLER TESTER THE PHONE AND LEFT A VOICE MESSAGE.
[2020-07-16] VITALS: BP 110/57
[2020-07-16 00:22] VITALS: BP 110/57
[2020-07-16] MEDS: ACETAMINOPHEN 325 MG TABLET PO PRN (01:21)
--- NOTE | 2020-07-16 01:25 | NUR ---
NUTRITIONAL CHEMIST NOTE - VANCO VANCOCIN NOT AVAILABLE IN MEDICATION ROOM. NOTIFIED CHARGE NURSE. FAXED ORDER TO RN IUSS ACOUSTIC ANALYST, AND STATED MEDICATION IS NOT AVAILABLE. VANCOCIN DOSE AT 0000 WAS NOT ADMINISTERED.
[2020-07-16] MEDS: BLOOD SUGAR DIAGNOSTIC 1 EACH STRIP IN SCH ×3 (01:32→12:26)
[2020-07-16] MEDS: INSULIN REGULAR, HUMAN 100 UNIT/ML 3 ML VIAL SQ PRN ×3 (01:34→12:49)
--- NOTE | 2020-07-16 01:45 | NUR ---
DOUBLE END PRODUCTION GRINDER NOTES - S/P RIGHT FEMORAL HD CATH INSERTION R FEMORAL HD CATH WAS INSERTED. NO ACTIVE BLEEDING NOTED. PATIENT HAS STABLE VITAL SIGNS AND IN NO DISTRESS AT THIS TIME. ADMINISTERED ACETAMINOPHEN 650MG.
[2020-07-16 04:00] VITALS: BP 101/56
[2020-07-16 04:14] VITALS: BP 101/56
--- NOTE | 2020-07-16 05:27 | NUR ---
PRODUCT OWNER CLOSING NOTES PATIENT A/O X1; OPENS EYES TO NAME, LYING COMFORTABLE IN BED. PATIENT HAS TRACH AND TOLERATING VENT SETTINGS WELL WITH NO SOB. EXTERNAL CARDIAC TELE MONITOR READS SR WITH PVC AND HR AT 64; NO S/S OF DISTRESS AT THIS TIME. MIDLINE TO REGINA; PATENT, INTACT, AND NO INFILTRATION NOTED. GTUBE PEG PATENT AND INTACT; NEPHRO 1.2 @ 60ML/HR; TOLERATING FEEDINGS WELL. FLEXISEAL RECTAL TUBE INTACT; BROWN LOOSE FORMED BM NOTED. HD CATH TO RIGHT FEMORAL; DRESSING C/D/I; NO BLEEDING NOTED. PATIENT HAS NO S/S OF PAIN AT THIS TIME. BILATERAL SOFT WRIST RESTRAINTS ON PATIENT FOR SAFETY; NO SKIN BREAKDOWN NOTED; GOOD CIRCULATION NOTED. ALL SAFETY MEASURES IN PLACE; BED IN LOWEST LOCKED POSITION; SIDE RAILS UP X2, CALL LIGHT WITHIN EASY REACH; BED ALARM ON. PATIENT MEDICALLY STABLE AT THIS TIME. WILL ENDORSE PLAN OF CARE TO ONCOMING MORNING RN.
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
[2020-07-16] MEDS: MIDODRINE HCL (5MG) 5 MG TABLET GT SCH ×2 (05:40→12:43)
[2020-07-16] MEDS: VANCOMYCIN HCL 125 MG/2.5 ML ORAL.SUSP PO SCH ×3 (05:41→13:24)
[2020-07-16 06:24] LABS: BASOPHILS # (AUTO) 0.1 /CMM (0.0-0.2); BASOPHILS % (AUTO) 0.7 % (0.0-2.0); EOSINOPHILS % (AUTO) 0.6 % (0.0-6.0); HEMATOCRIT 24 % (39-51); HEMOGLOBIN 7.7 g/dL (13.5-17.5); LYMPHOCYTES # (AUTO) 0.9 /CMM (0.8-4.8); LYMPHOCYTES % (AUTO) 7.3 % (20.0-44.0); MEAN CORPUSCULAR HGB CONC 32 g/dl (31.0-36.0); MEAN CORPUSCULAR VOLUME 95 fL (80-96); MONOCYTES # (AUTO) 1.9 /CMM (0.1-1.30); MONOCYTES % (AUTO) 14.7 % (2.0-12.0); NEUTROPHILS # (AUTO) 9.8 /CMM (1.8-8.9); NEUTROPHILS % (AUTO) 76.7 % (43.0-81.0); PLATELET COUNT (AUTO) 77 /CMM (150-450); RED BLOOD CELL COUNT(AUTO) 2.56 MIL/uL (4.5-6.0); WHITE BLOOD COUNT (AUTO) 12.7 K/uL (4.3-11.0)
[2020-07-16 06:54] LABS: CALCIUM, SERUM 8.7 mg/dL (8.5-10.1); CREATININE 7.4 mg/dL (0.6-1.3); POTASSIUM 3.3 mmol/L (3.5-5.1)
[2020-07-16 08:00] VITALS: BP 113/62
--- NOTE | 2020-07-16 08:00 | NUR ---
RN Opening note Received patient in bed open eyes, does no appears pain or distress, skin is warm to touch keep clean/dry, intact midline site on left upper arm, intact GTF running Nephro at 65ml/hr. Patient on ventilator, respiratory even and unlabored O2sat 97-98% on minor. Kept elevated HOB for ensure airway and aspiration precaution also lowest bed position with bed alarm on for safety. Call light within reach, will continue to monitor.
[2020-07-16] MEDS: PROSOURCE / PROSTAT (PYXIS) 30 ML UDC GT SCH ×2 (08:39→12:27)
[2020-07-16] MEDS: DILTIAZEM HCL 30 MG TABLET GT SCH (09:00)
[2020-07-16] MEDS: FAMOTIDINE (20 MG) 20 MG TABLET GT SCH (09:24)
[2020-07-16] MEDS: ESCITALOPRAM OXALATE (10 MG) 10 MG TABLET GT SCH (09:24)
[2020-07-16] MEDS: FERROUS SULFATE UDC 300 MG/5 ML UDC GT SCH (09:24)
[2020-07-16] MEDS: VIT B CMPLX 3/FA/VIT C/BIOTIN 1 TAB TABLET PO SCH (09:24)
[2020-07-16] MEDS: LACTOBACILLUS RHAMNOSUS GG 1 EACH CAP.SPRINK PO SCH (09:24)
[2020-07-16] MEDS: ASPIRIN 81 MG TAB.CHEW GT SCH (09:25)
[2020-07-16] MEDS: HYDROGEL DRESSING 90 GM TUBE TP SCH (09:26)
[2020-07-16] MEDS: CLOTRIMAZOLE 1% 15 GM TUBE TP SCH (09:26)
--- NOTE | 2020-07-16 09:27 | NUR ---
BP 113/62, HR-77, will hold med.
[2020-07-16] MEDS ORDERED: POTASSIUM CHLORIDE 20 MEQ TAB.PRT.SR PO ONE (11:00)
--- NOTE | 2020-07-16 11:50 | NUR ---
Duplicate Potassium medication order,will hold K-dur at 11:00.
[2020-07-16] MEDS ORDERED: POTASSIUM CHLORIDE 20 MEQ POWDER PACKET GT ONE (12:00)
[2020-07-16] MEDS ORDERED: CEFT1VIA15 IV (12:15)
[2020-07-16 12:43] VITALS: BP 120/67
[2020-07-16] MEDS: NEPRO 1,000 ML BOTTLE GT PRN (13:24)
--- NOTE | 2020-07-16 15:32 | NUR ---
Patient going d/c to [facility] and spoke with Ruy who stated "Patient positive C-diff, we there's no room for C-diff." Informed CM.
--- NOTE | 2020-07-16 17:00 | NUR ---
3 solar installation foreman picked up patient and given report. Patient in stable condition, wound picture taken.
== END 2020-07-16 17:45 | DRG 280 ==
LOC: ER 16:28 → TRANSITION 19:15 → TELE1 20:08 → ICU 22:43 → TELE-TD 07-04 18:50 → TELE1 07-05 11:00 → TELE 07-06 03:15 → ICU 07-15 15:13 → TELE 07-15 16:35
PROVIDERS: ADMIT Student in an Organized Health Care Education/Training Program; ATTEND Nurse Practitioner Acute Care
PROC: 5A1955Z Respiratory Ventilation, Greater than 96 Consecutive Hours (ICD-10-PCS; principal; 2020-07-02)
PROC: 02HV33Z Insertion of Infusion Device into Superior Vena Cava, Percutaneous Approach (ICD-10-PCS; 2020-07-02)
PROC: B548ZZA Ultrasonography of Superior Vena Cava, Guidance (ICD-10-PCS; 2020-07-02)
PROC: 5A1D70Z Performance of Urinary Filtration, Intermittent, Less than 6 Hours Per Day (ICD-10-PCS; 2020-07-04)
PROC: 05PYX3Z Removal of Infusion Device from Upper Vein, External Approach (ICD-10-PCS; 2020-07-05)
PROC: 02HV33Z Insertion of Infusion Device into Superior Vena Cava, Percutaneous Approach (ICD-10-PCS; 2020-07-07)
PROC: B548ZZA Ultrasonography of Superior Vena Cava, Guidance (ICD-10-PCS; 2020-07-07)
PROC: 05H633Z Insertion of Infusion Device into Left Subclavian Vein, Percutaneous Approach (ICD-10-PCS; 2020-07-14)
PROC: B547ZZA Ultrasonography of Left Subclavian Vein, Guidance (ICD-10-PCS; 2020-07-14)
PROC: 06HY33Z Insertion of Infusion Device into Lower Vein, Percutaneous Approach (ICD-10-PCS; 2020-07-16)
DX: T80.211A Bloodstream infection due to central venous catheter, initial encounter (principal); L89.153 Pressure ulcer of sacral region, stage 3; I21.A1 Myocardial infarction type 2; A41.01 Sepsis due to Methicillin susceptible Staphylococcus aureus; R65.21 Severe sepsis with septic shock; J96.20 Acute and chronic respiratory failure, unspecified whether with hypoxia or hypercapnia; E43 Unspecified severe protein-calorie malnutrition; G93.41 Metabolic encephalopathy; J15.9 Unspecified bacterial pneumonia; N18.6 End stage renal disease; E87.1 Hypo-osmolality and hyponatremia; E44.0 Moderate protein-calorie malnutrition; G93.1 Anoxic brain damage, not elsewhere classified; I12.0 Hypertensive chronic kidney disease with stage 5 chronic kidney disease or end stage renal disease; J81.1 Chronic pulmonary edema; L97.828 Non-pressure chronic ulcer of other part of left lower leg with other specified severity; L97.518 Non-pressure chronic ulcer of other part of right foot with other specified severity; I42.9 Cardiomyopathy, unspecified; A04.72 Enterocolitis due to Clostridium difficile, not specified as recurrent; J90 Pleural effusion, not elsewhere classified; Z99.11 Dependence on respirator [ventilator] status; E11.22 Type 2 diabetes mellitus with diabetic chronic kidney disease; E87.6 Hypokalemia; D69.6 Thrombocytopenia, unspecified; Z93.0 Tracheostomy status; Z86.73 Personal history of transient ischemic attack (TIA), and cerebral infarction without residual deficits; E11.40 Type 2 diabetes mellitus with diabetic neuropathy, unspecified; E86.1 Hypovolemia; Z20.822 Contact with and (suspected) exposure to COVID-19; D64.9 Anemia, unspecified; E88.09 Other disorders of plasma-protein metabolism, not elsewhere classified; Z68.23 Body mass index [BMI] 23.0-23.9, adult; E11.621 Type 2 diabetes mellitus with foot ulcer; L89.896 Pressure-induced deep tissue damage of other site; L98.8 Other specified disorders of the skin and subcutaneous tissue; Z79.4 Long term (current) use of insulin; I25.5 Ischemic cardiomyopathy; I34.0 Nonrheumatic mitral (valve) insufficiency; Z99.2 Dependence on renal dialysis; Z83.3 Family history of diabetes mellitus; Y84.8 Other medical procedures as the cause of abnormal reaction of the patient, or of later complication, without mention of misadventure at the time of the procedure
CPT/HCPCS: 31720; 36410; 36415; 36569; 36600; 70450-TC; 71045-TC; 80048-TC; 80053-TC; 80061-TC; 80076-TC; 80202-TC; 82533; 82803-TC; 82962-TC; 83605-TC; 83735-TC; 84100-TC; 84443-TC; 84484-TC; 85025-TC; 85730-TC; 86706; 87040-TC; 87081-TC; 87340; 90935-TC; 93307-TC; 93312-TC; 94003-TC; 94760-TC; 94762-TC; 94799-TC; 99082-TC; A4216; A4623; A6248; A6253; A6403; A7526; C1750; C1751; C9113; G0378; J0696; J0885; J1650; J1720; J1815; J2250; J2405; J2543; J3010; J3370; J7030; J7040; J7050; J7060; P9047; U0003